=== PATIENT | male | born 1940 | race Two or more races ===

== ENCOUNTER 2017-10-05 17:08 | Inpatient (IN) | payer OTHER, MEDICAID ==
[~2017-10-05] VITALS: Ht 172.7 cm; Wt 73.5 kg
[2017-10-05] MEDS ORDERED: Acetaminophen 650 MG SUPP RECTAL ONE (17:30)
[2017-10-05] MEDS ORDERED: Acetaminophen 500mg (ES) tab ORAL ONE (17:30)
[2017-10-05 17:32] LABS: APPEARANCE,URINE SLIGHTLY CLOUDY; BILIRUBIN, URINE NEGATIVE (NEGATIVE); COLOR,URINE PALE YELLOW; GLUCOSE, URINE (UA) NEGATIVE (NEGATIVE); KETONES,URINE NEGATIVE (NEGATIVE); LEUKOCYTE ESTERASE ,URINE 3+ (NEGATIVE); NITRITE,URINE POSITIVE (NEGATIVE); PH,URINE 6.5 (4.5-8.0); PROTEIN,URINE 2+ (NEGATIVE); UROBILINOGEN,URINE NORMAL MG/DL (0.0-1.0)
[2017-10-05 17:39] LABS: HEMATOCRIT 41.6 % (42.0-52.0); HEMOGLOBIN 14.3 G/DL (14.2-18.0); MEAN CORPUSCULAR VOLUME 100 FL (80-99); PLATELET COUNT 179 K/UL (150-450); RED BLOOD COUNT 4.17 M/UL (4.70-6.10); RED CELL DISTRIBUTION WIDTH 12.6 % (11.6-14.8); WHITE BLOOD COUNT 14.5 K/UL (4.8-10.8)
[2017-10-05 18:12] LABS: ANION GAP 12 mmol/L (5-15); BLOOD UREA NITROGEN 18 mg/dL (7-18); CALCIUM 9.4 MG/DL (8.5-10.1); CARBON DIOXIDE 23 MMOL/L (21-32); CHLORIDE 102 MMOL/L (98-107); CREATININE 1.3 MG/DL (0.55-1.30); POTASSIUM 3.3 MMOL/L (3.5-5.1); SODIUM 137 MMOL/L (136-145)
[2017-10-05 18:16] VITALS: BP 155/85
[2017-10-05] MEDS ORDERED: cefTRIAXone 1 GM in NS 55 ML IVPB ONE (18:30)
[2017-10-05 18:31] LABS: ALANINE AMINOTRANSFERASE 11 U/L (12-78); ALBUMIN 3.6 G/DL (3.4-5.0); ALBUMIN/GLOBULIN RATIO 0.8 (1.0-2.7); ALKALINE PHOSPHATASE 114 U/L (46-116); ASPARTATE AMINO TRANSFERASE 19 U/L (15-37); BILIRUBIN,TOTAL 1.7 MG/DL (0.2-1.0); CKMB < 0.5 NG/ML (0.0-3.6); CREATINE KINASE 83 U/L (26-308)
[2017-10-05 18:37] LABS: BILIRUBIN,DIRECT 0.3 MG/DL (0.0-0.3)
[2017-10-05] MEDS ORDERED: TAMSULOSIN HCL0.4 MG ORAL (19:17)
[2017-10-05] MEDS ORDERED: FLUCONAZOLE100 MG ORAL (19:18)
[2017-10-05] MEDS ORDERED: LOSARTAN POTASS25 MG ORAL (19:19)
[2017-10-05] MEDS ORDERED: PROSCAR5 MG ORAL (19:19)
[2017-10-05 19:32] VITALS: BP 137/71
[2017-10-05] MEDS ORDERED: Morphine Sulfate 2mg/ml Inj IVP PRN (19:45)
[2017-10-05] MEDS ORDERED: Miralax 17gm pkt ORAL PRN (19:45)
[2017-10-05] MEDS ORDERED: Albuterol/Ipratropium 3ml neb HHN PRN (19:45)
--- NOTE | 2017-10-05 19:58 | Emergency Room Report ---
History of Present Illness General Chief Complaint: Altered Level of Consciousness Source: Patient Present Illness HPI 77-year-old male presents ED for evaluation. Patient presenting to home with lethargy and weakness x1 day. Febrile in triage. Denies cough. Denies nausea or vomiting. Denies chest pain or shortness of breath. Denies sick contacts or recent travel. No other aggravating relieving factors. Denies any other associated symptoms Allergies: Coded Allergies: No Known Allergies (Unverified , 10/05/17) Patient History Past Medical History: none Past Surgical History: none Pertinent Family History: none Social History: Denies: smoking, alcohol use, drug use Immunizations: UTD Reviewed Nursing Documentation: PMH: Agreed, PSxH: Agreed Nursing Documentation-PMH Past Medical History: No History, Except For Review of Systems All Other Systems: negative except mentioned in HPI Physical Exam Vital Signs Date Time Temp Pulse Resp B/P (MAP) Pulse Ox O2 Delivery O2 Flow Rate FiO2 10/05/17 16:53 103.8 110 18 153/83 95 Room Air Sp02 EP Interpretation: reviewed, normal General Appearance: no apparent distress, lethargic Head: normocephalic Eyes: bilateral eye normal inspection, bilateral eye PERRL ENT: normal ENT inspection Neck: normal inspection Respiratory: chest non-tender, lungs clear, normal breath sounds, speaking full sentences Cardiovascular #1: regular rate, rhythm, no edema Gastrointestinal: normal bowel sounds, non tender, soft, non-distended, no guarding, no rebound Rectal: deferred Genitourinary: no CVA tenderness Musculoskeletal: normal inspection Neurologic: other - lethargic Psychiatric: other - lethargic Skin: normal inspection Lymphatic: normal inspection Medical Decision Making Diagnostic Impression: Primary Impression: Altered level of consciousness Additional Impression: UTI (urinary tract infection) Qualified Codes: N39.0 - Urinary tract infection, site not specified ER Course Hospital Course 77-year-old male presenting to ED with generalized weakness, fever Differential diagnoses include: Pneumonia, UTI, sepsis, dehydration, MS/ unstable angina Clinical course Patient placed on stretcher. On property assessment monitor with tachycardia, fever. After initial history and physical, I ordered labs, IV fluids, EKG, chest x-ray , blood cultures, UA. given tylenol Labs - electrolytes ok, noted leukocytosis, troponins negative, UA grossly positive for UTI, lactate ok, influenza negative EKG - sinus tachycardia CXR - no acute process Abx given. given IVFs, given tylenol. tachycardia resolved. patient is more awake, alert Case discussed with Dr Daly and they agreed to admit patient to their service for further care and support I feel this is a highly complex case requiring extensive working including EKG/ Rhythm strip, Xray/CT/US, Blood/urine lab work, repeat exams while in ED, and administration of strong opiates/narcotics for pain control, admission to hospital or close patient follow up. Diagnosis - ALOC, UTI Patient admitted to floor in serious condition Labs Test 10/05/17 17:20 White Blood Count 14.5 K/UL (4.8-10.8) Red Blood Count 4.17 M/UL (4.70-6.10) Hemoglobin 14.3 G/DL (14.2-18.0) Hematocrit 41.6 % (42.0-52.0) Mean Corpuscular Volume 100 FL (80-99) Mean Corpuscular Hemoglobin 34.2 PG (27.0-31.0) Mean Corpuscular Hemoglobin Concent 34.3 G/DL (32.0-36.0) Red Cell Distribution Width 12.6 % (11.6-14.8) Platelet Count 179 K/UL (150-450) Mean Platelet Volume 6.8 FL (6.5-10.1) Neutrophils (%) (Auto) % (45.0-75.0) Lymphocytes (%) (Auto) % (20.0-45.0) Monocytes (%) (Auto) % (1.0-10.0) Eosinophils (%) (Auto) % (0.0-3.0) Basophils (%) (Auto) % (0.0-2.0) Differential Total Cells Counted 100 Neutrophils % (Manual) 88 % (45-75) Lymphocytes % (Manual) 7 % (20-45) Monocytes % (Manual) 3 % (1-10) Eosinophils % (Manual) 0 % (0-3) Basophils % (Manual) 0 % (0-2) Band Neutrophils 2 % (0-8) Platelet Estimate Adequate Platelet Morphology Normal Red Blood Cell Morphology Normal Urine Color Pale yellow Urine Appearance Slightly cloudy Urine pH 6.5 (4.5-8.0) Urine Specific [place] 1.010 (1.005-1.035) Urine Protein 2+ (NEGATIVE) Urine Glucose (UA) Negative (NEGATIVE) Urine Ketones Negative (NEGATIVE) Urine Occult Blood 4+ (NEGATIVE) Urine Nitrite Positive (NEGATIVE) Urine Bilirubin Negative (NEGATIVE) Urine Urobilinogen Normal MG/DL (0.0-1.0) Urine Leukocyte Esterase 3+ (NEGATIVE) Urine RBC 10-15 /HPF (0 - 0) Urine WBC 5-10 /HPF (0 - 0) Urine Squamous Epithelial Cells None /LPF (NONE/OCC) Urine Amorphous Sediment Few /LPF (NONE) Urine Bacteria Many /HPF (NONE) Sodium Level 137 MMOL/L (136-145) Potassium Level 3.3 MMOL/L (3.5-5.1) Chloride Level 102 MMOL/L (98-107) Carbon Dioxide Level 23 MMOL/L (21-32) Anion Gap 12 mmol/L (5-15) Blood Urea Nitrogen 18 mg/dL (7-18) Creatinine 1.3 MG/DL (0.55-1.30) Estimat Glomerular Filtration Rate mL/min (>60) Glucose Level 145 MG/DL (74-106) Lactic Acid Level 1.20 mmol/L (0.66-2.22) Calcium Level 9.4 MG/DL (8.5-10.1) Total Bilirubin 1.7 MG/DL (0.2-1.0) Direct Bilirubin 0.3 MG/DL (0.0-0.3) Aspartate Amino Transf (AST/SGOT) 19 U/L (15-37) Alanine Aminotransferase (ALT/SGPT) 11 U/L (12-78) Alkaline Phosphatase 114 U/L (46-116) Total Creatine Kinase 83 U/L (26-308) Creatine Kinase MB < 0.5 NG/ML (0.0-3.6) Creatine Kinase MB Relative Index 0.6 Troponin I 0.008 ng/mL (0.000-0.056) Pro-B-Type Natriuretic Peptide 400 pg/mL (0-125) Total Protein 8.0 G/DL (6.4-8.2) Albumin 3.6 G/DL (3.4-5.0) Globulin 4.4 g/dL Albumin/Globulin Ratio 0.8 (1.0-2.7) EKG Diagnostic Results Rate: tachycardiac Rhythm: NSR ST Segments: no acute changes ASA given to the pt in ED: No Rhythm Strip Diag. Results EP Interpretation: yes Rhythm: NSR, no PVC's, no ectopy Chest X-Ray Diagnostic Results Chest X-Ray Diagnostic Results : Chest X-Ray Ordered: Yes # of Views/Limited/Complete: 1 View Indication: Other - ams EP Interpretation: Yes Interpretation: no consolidation, no effusion, no pneumothorax, no acute cardiopulmonary disease Impression: No acute disease Electronically Signed by: Electronically signed by Ryley Tracy MD Last Vital Signs Date Time Temp Pulse Resp B/P (MAP) Pulse Ox O2 Delivery O2 Flow Rate FiO2 10/05/17 19:32 100.1 92 20 137/71 97 Room Air Status: improved Disposition: ADMITTED INPATIENT Condition: Serious Referrals: [facility],REFERRING (PCP) RYLEY TRACY M.D. Oct 05, 2017 19:58
[2017-10-05] MEDS ORDERED: Vancomycin 1.5 GM/D5W 250ML IVPB ONE (20:00)
[2017-10-05 21:20] VITALS: BP 132/72
[2017-10-06] VITALS: BP 147/91
[2017-10-06] MEDS ORDERED: Vancomycin 1 GM in D5W 275 ML IV SCH (00:30)
[2017-10-06] MEDS ORDERED: Cefepime 2gm ONE (00:33)
[2017-10-06] MEDS: Tamsulosin 0.4mg cap ORAL SCH ×2 (00:53→21:01)
[2017-10-06] MEDS: Cefepime HCl 2 GM in D5W 110 ML IV SCH ×2 (00:54→23:06)
[2017-10-06] MEDS: Heparin 5000 units/ml inj SUBQ SCH ×3 (00:56→21:03)
[2017-10-06 04:00] VITALS: BP 125/79
[2017-10-06 07:23] LABS: HEMATOCRIT 40.8 % (42.0-52.0); HEMOGLOBIN 13.9 G/DL (14.2-18.0); MEAN CORPUSCULAR VOLUME 102 FL (80-99); PLATELET COUNT 173 K/UL (150-450); RED BLOOD COUNT 4.02 M/UL (4.70-6.10); RED CELL DISTRIBUTION WIDTH 13.1 % (11.6-14.8); WHITE BLOOD COUNT 17.8 K/UL (4.8-10.8)
[2017-10-06 07:37] LABS: ALANINE AMINOTRANSFERASE 13 U/L (12-78); ALBUMIN 3.1 G/DL (3.4-5.0); ALBUMIN/GLOBULIN RATIO 0.8 (1.0-2.7); ALKALINE PHOSPHATASE 100 U/L (46-116); ANION GAP 7 mmol/L (5-15); ASPARTATE AMINO TRANSFERASE 17 U/L (15-37); BILIRUBIN,TOTAL 2.1 MG/DL (0.2-1.0); BLOOD UREA NITROGEN 20 mg/dL (7-18); CALCIUM 9.1 MG/DL (8.5-10.1); CARBON DIOXIDE 28 MMOL/L (21-32); CHLORIDE 101 MMOL/L (98-107); CREATININE 1.5 MG/DL (0.55-1.30); POTASSIUM 3.5 MMOL/L (3.5-5.1); SODIUM 136 MMOL/L (136-145)
[2017-10-06 07:38] LABS: BILIRUBIN,DIRECT 0.3 MG/DL (0.0-0.3)
--- NOTE | 2017-10-06 09:40 | Diagnostic Imaging Report ---
Indication: Weakness Technique: XRAY Chest 1v Comparison: None Findings: Our is borderline enlarged. Thoracic aorta is slightly tortuous. There is very mild pulmonary vascular congestion. There is no focal airspace consolidation. No pleural effusion or pneumothorax. There are degenerative changes of the spine. Chronic right-sided rib fractures. No acute osseous abnormality is seen. Impression: Borderline cardiomegaly and suggestion of mild pulmonary vascular congestion. No focal consolidation. Study obtained via the emergency department however patient admitted to the hospital at time of dictation of the final report.
--- NOTE | 2017-10-06 11:50 | History and Physical ---
History of Present Illness General Date patient seen: Oct 06, 2017 Reason for Hospitalization: Altered Level of Consciousness Present Illness HPI 77-year-old male with hx of BPH, HTN presented to ED for evaluation of lethargy and weakness x1 day. Pt was febrile in ER . Denies cough. Denies nausea or vomiting. Denies chest pain or shortness of breath. No other aggravating relieving factors. Denies any other associated symptoms. Pt is admitted for w/u and treatment of sepsi. Allergies: Coded Allergies: No Known Allergies (Unverified , 10/05/17) Medication History Scheduled Finasteride* (Proscar*), 5 MG ORAL DAILY, (Reported) Fluconazole (Fluconazole), 100 MG ORAL DAILY, (Reported) Losartan Potassium* (Losartan Potassium*), 25 MG ORAL DAILY, (Reported) Tamsulosin Hcl (Tamsulosin Hcl*), 0.4 MG ORAL BEDTIME, (Reported) Patient History Healthcare decision maker Resuscitation status Full Code Advanced Directive on File Past Medical/Surgical History Past Medical/Surgical History: (1) BPH (benign prostatic hyperplasia) Review of Systems Constitutional: Reports: malaise, weakness Physical Exam General Appearance: WD/WN Lines, tubes and drains: peripheral HEENT: normocephalic, atraumatic Neck: non-tender, normal alignment Respiratory/Chest: chest wall non-tender, lungs clear Breasts: no masses Cardiovascular/Chest: normal peripheral pulses Abdomen: normal bowel sounds Genitourinary/Rectal: normal genital exam Last 24 Hour Vital Signs Date Time Temp Pulse Resp B/P (MAP) Pulse Ox O2 Delivery O2 Flow Rate FiO2 10/06/17 04:00 99.5 99 18 125/79 95 Room Air 10/06/17 00:00 109 21 147/91 99 Room Air 10/05/17 21:25 100.1 93 19 132/72 98 Room Air 10/05/17 21:20 100.1 93 19 132/72 98 Room Air 10/05/17 19:32 100.1 92 20 137/71 97 Room Air 10/05/17 18:21 100.1 10/05/17 18:18 98.7 10/05/17 18:16 98.7 134 19 155/85 Room Air 10/05/17 17:27 102.8 10/05/17 16:53 103.8 110 18 153/83 95 Room Air Intake and Output 1/27/18 1/28/18 19:00 07:00 Intake Total 0 ml Output Total 200 ml 1650 ml Balance -200 ml -1650 ml Intake Oral 0 ml Output Urine Total 200 ml 1650 ml Laboratory Tests Test 10/05/17 17:20 10/06/17 06:10 White Blood Count 14.5 K/UL (4.8-10.8) H 17.8 K/UL (4.8-10.8) H Red Blood Count 4.17 M/UL (4.70-6.10) L 4.02 M/UL (4.70-6.10) L Hemoglobin 14.3 G/DL (14.2-18.0) 13.9 G/DL (14.2-18.0) L Hematocrit 41.6 % (42.0-52.0) L 40.8 % (42.0-52.0) L Mean Corpuscular Volume 100 FL (80-99) H 102 FL (80-99) H Mean Corpuscular Hemoglobin 34.2 PG (27.0-31.0) H 34.5 PG (27.0-31.0) H Mean Corpuscular Hemoglobin Concent 34.3 G/DL (32.0-36.0) 34.0 G/DL (32.0-36.0) Red Cell Distribution Width 12.6 % (11.6-14.8) 13.1 % (11.6-14.8) Platelet Count 179 K/UL (150-450) 173 K/UL (150-450) Mean Platelet Volume 6.8 FL (6.5-10.1) 5.2 FL (6.5-10.1) L Neutrophils (%) (Auto) % (45.0-75.0) % (45.0-75.0) Lymphocytes (%) (Auto) % (20.0-45.0) % (20.0-45.0) Monocytes (%) (Auto) % (1.0-10.0) % (1.0-10.0) Eosinophils (%) (Auto) % (0.0-3.0) % (0.0-3.0) Basophils (%) (Auto) % (0.0-2.0) % (0.0-2.0) Differential Total Cells Counted 100 100 Neutrophils % (Manual) 88 % (45-75) H 93 % (45-75) H Lymphocytes % (Manual) 7 % (20-45) L 3 % (20-45) L Monocytes % (Manual) 3 % (1-10) 4 % (1-10) Eosinophils % (Manual) 0 % (0-3) 0 % (0-3) Basophils % (Manual) 0 % (0-2) 0 % (0-2) Band Neutrophils 2 % (0-8) 0 % (0-8) Platelet Estimate Adequate Adequate Platelet Morphology Normal Normal Red Blood Cell Morphology Normal Urine Color Pale yellow Urine Appearance Slightly cloudy Urine pH 6.5 (4.5-8.0) Urine Specific [place] 1.010 (1.005-1.035) Urine Protein 2+ (NEGATIVE) H Urine Glucose (UA) Negative (NEGATIVE) Urine Ketones Negative (NEGATIVE) Urine Occult Blood 4+ (NEGATIVE) H Urine Nitrite Positive (NEGATIVE) H Urine Bilirubin Negative (NEGATIVE) Urine Urobilinogen Normal MG/DL (0.0-1.0) Urine Leukocyte Esterase 3+ (NEGATIVE) H Urine RBC 10-15 /HPF (0 - 0) H Urine WBC 5-10 /HPF (0 - 0) H Urine Squamous Epithelial Cells None /LPF (NONE/OCC) Urine Amorphous Sediment Few /LPF (NONE) H Urine Bacteria Many /HPF (NONE) H Sodium Level 137 MMOL/L (136-145) 136 MMOL/L (136-145) Potassium Level 3.3 MMOL/L (3.5-5.1) L 3.5 MMOL/L (3.5-5.1) Chloride Level 102 MMOL/L (98-107) 101 MMOL/L (98-107) Carbon Dioxide Level 23 MMOL/L (21-32) 28 MMOL/L (21-32) Anion Gap 12 mmol/L (5-15) 7 mmol/L (5-15) Blood Urea Nitrogen 18 mg/dL (7-18) 20 mg/dL (7-18) H Creatinine 1.3 MG/DL (0.55-1.30) 1.5 MG/DL (0.55-1.30) H Estimat Glomerular Filtration Rate mL/min (>60) mL/min (>60) Glucose Level 145 MG/DL (74-106) H 131 MG/DL (74-106) H Lactic Acid Level 1.20 mmol/L (0.66-2.22) Calcium Level 9.4 MG/DL (8.5-10.1) 9.1 MG/DL (8.5-10.1) Total Bilirubin 1.7 MG/DL (0.2-1.0) H 2.1 MG/DL (0.2-1.0) H Direct Bilirubin 0.3 MG/DL (0.0-0.3) 0.3 MG/DL (0.0-0.3) Aspartate Amino Transf (AST/SGOT) 19 U/L (15-37) 17 U/L (15-37) Alanine Aminotransferase (ALT/SGPT) 11 U/L (12-78) L 13 U/L (12-78) Alkaline Phosphatase 114 U/L (46-116) 100 U/L (46-116) Total Creatine Kinase 83 U/L (26-308) Creatine Kinase MB < 0.5 NG/ML (0.0-3.6) Creatine Kinase MB Relative Index 0.6 Troponin I 0.008 ng/mL (0.000-0.056) Pro-B-Type Natriuretic Peptide 400 pg/mL (0-125) H Total Protein 8.0 G/DL (6.4-8.2) 7.2 G/DL (6.4-8.2) Albumin 3.6 G/DL (3.4-5.0) 3.1 G/DL (3.4-5.0) L Globulin 4.4 g/dL 4.1 g/dL Albumin/Globulin Ratio 0.8 (1.0-2.7) L 0.8 (1.0-2.7) L Macrocytosis 1+ Microbiology Date/Time Source Procedure Growth Status 10/05/17 17:39 Nasal Nares Influenza Types A,B Antigen (DAISY) - Final Complete 10/05/17 17:20 Urine,Clean Catch Urine Culture - Preliminary Gram Negative Bacillus 1 Resulted Height (Feet): 5 Height (Inches): 8.00 Weight (Pounds): 162 Medications Current Medications Medications (Trade) Dose Ordered Sig/Mary Beth Route PRN Reason Start Time Stop Time Status Last Admin Dose Admin Acetaminophen (Tylenol) 650 mg Q4H PRN ORAL T>100.5 10/05/17 19:45 11/04/17 19:44 Albuterol/ Ipratropium (Albuterol/ Ipratropium) 3 ml Q4H PRN HHN Shortness of Breath 10/05/17 19:45 10/10/17 19:44 Cefepime HCl 2 gm/ Dextrose 110 ml @ 220 mls/hr Q24H IV 10/05/17 22:00 10/12/17 21:59 10/06/17 00:54 Finasteride (Proscar) 5 mg DAILY ORAL 10/06/17 09:00 11/05/17 08:59 10/06/17 09:49 Heparin Sodium (Porcine) (Heparin 5000 units/ml) 5,000 units EVERY 12 HOURS SUBQ 10/05/17 21:00 11/04/17 20:59 10/06/17 09:51 Morphine Sulfate (Morphine Sulfate) 2 mg Q4H PRN IVP Moderate Pain (Pain Scale 4-6) 10/05/17 19:45 10/12/17 19:44 Ondansetron HCl (Zofran) 4 mg Q6H PRN IVP Nausea & Vomiting 10/05/17 19:45 11/04/17 19:44 Phenazopyridine HCl (Pyridium) 100 mg DAILYPRN PRN ORAL dysuria 10/05/17 19:45 11/04/17 19:44 Polyethylene Glycol (Miralax) 17 gm DAILYPRN PRN ORAL Constipation 10/05/17 19:45 11/04/17 19:44 Tamsulosin HCl (Flomax) 0.4 mg BEDTIME ORAL 10/05/17 21:00 11/04/17 20:59 10/06/17 00:53 Temazepam (Restoril) 15 mg HSPRN PRN ORAL Insomnia 10/05/17 19:45 10/12/17 19:44 Vancomycin HCl (Vanco rx to dose) 1 ea DAILY PRN MISC . 10/05/17 20:00 11/04/17 19:59 Vancomycin HCl/ Dextrose 250 ml @ 166.667 mls/hr Q24H IVPB 10/06/17 20:00 10/11/17 19:59 Assessment/Plan Problem List: (1) Sepsis ICD Codes: A41.9 - Sepsis, unspecified organism SNOMED: 73163404 (2) UTI (urinary tract infection) ICD Codes: N39.0 - Urinary tract infection, site not specified SNOMED: 28404355 Qualifiers: Qualified Codes: N39.0 - Urinary tract infection, site not specified (3) Altered level of consciousness ICD Codes: R40.4 - Transient alteration of awareness SNOMED: 0962833 (4) BPH (benign prostatic hyperplasia) ICD Codes: N40.0 - Benign prostatic hyperplasia without lower urinary tract symptoms SNOMED: 727074777 Assessment/Plan iv fuids iv abx check cultures renal w/u continue home meds monitor bp JOHN PAUL SEPINOSA Oct 06, 2017 11:50
[2017-10-06 12:00] VITALS: BP 147/80
[2017-10-06 16:00] VITALS: BP 148/71
[2017-10-06] MEDS ORDERED: Tubing IV Secondary IV ONE (16:25)
[2017-10-06] MEDS: Vancomycin 1250mg/D5W 250ml IVPB SCH (19:55)
[2017-10-06 20:43] VITALS: BP 122/73
[2017-10-07 00:08] VITALS: BP 116/72
[2017-10-07 04:22] VITALS: BP 121/72
[2017-10-07 08:00] VITALS: BP 129/76
[2017-10-07] MEDS: Heparin 5000 units/ml inj SUBQ SCH ×2 (09:38→20:42)
[2017-10-07 12:00] VITALS: BP 110/69
[2017-10-07] MEDS ORDERED: Ertapenem 1gm in NS 55ml IVPB SCH (15:00)
[2017-10-07 16:00] VITALS: BP 134/81
--- NOTE | 2017-10-07 17:11 | Pulmonology Progress Note ---
Assessment/Plan Problems: (1) Sepsis (2) UTI (urinary tract infection) (3) Altered level of consciousness (4) BPH (benign prostatic hyperplasia) Assessment/Plan continue abx iv fluids check electroltyes renal w/u dvt prophylaxis. Subjective ROS Limited/Unobtainable: No Constitutional: Reports: no symptoms HEENT: Repors: no symptoms Respiratory: Reports: no symptoms Allergies: Coded Allergies: No Known Allergies (Unverified , 10/05/17) Objective Last 24 Hour Vital Signs Date Time Temp Pulse Resp B/P (MAP) Pulse Ox O2 Delivery O2 Flow Rate FiO2 10/07/17 16:00 101.7 100 20 134/81 96 10/07/17 12:00 98.2 90 18 110/69 97 10/07/17 08:00 99.7 107 18 129/76 96 10/07/17 04:22 98.9 91 19 121/72 96 10/07/17 00:08 98.9 90 18 116/72 96 10/06/17 20:43 98.9 91 18 122/73 96 Intake and Output 10/06/17 10/07/17 19:00 07:00 Intake Total 490.000 ml Balance 490.000 ml Intake Oral 240 ml IV Total 250.000 ml # Voids 2 # Bowel Movements 2 Objective General Appearance: WN HEENT: normocephalic, atraumatic Respiratory/Chest: chest wall non-tender, lungs clear Cardiovascular: normal peripheral pulses, normal rate Abdomen: normal bowel sounds, no organomegaly Extremities: no cyanosis Skin: no rash 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/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, alert Lymphatic: no neck adenopathy General Appearance: WD/WN Microbiology Date/Time Source Procedure Growth Status 10/05/17 17:22 Blood Blood Culture - Preliminary Gram Negative Bacillus 1 Resulted 10/05/17 17:20 Blood Blood Culture - Preliminary NO GROWTH AFTER 24 HOURS Resulted 10/05/17 17:39 Nasal Nares Influenza Types A,B Antigen (DAISY) - Final Complete 10/06/17 14:10 Stool Clostridium difficile Toxin Assay - Final Complete 10/05/17 17:20 Urine,Clean Catch Urine Culture - Preliminary Escherichia Coli - Esbl Gram Negative Bacillus 1 Resulted Current Medications Medications (Trade) Dose Ordered Sig/Mary Beth Route PRN Reason Start Time Stop Time Status Last Admin Dose Admin Acetaminophen (Tylenol) 650 mg Q4H PRN ORAL T>100.5 10/05/17 19:45 11/04/17 19:44 10/07/17 16:09 Albuterol/ Ipratropium (Albuterol/ Ipratropium) 3 ml Q4H PRN HHN Shortness of Breath 10/05/17 19:45 10/10/17 19:44 Ertapenem 1 gm/ Sodium Chloride 55 ml @ 110 mls/hr Q24H IVPB 10/07/17 15:00 10/12/17 14:59 10/07/17 16:05 Finasteride (Proscar) 5 mg DAILY ORAL 10/06/17 09:00 11/05/17 08:59 10/07/17 09:37 Heparin Sodium (Porcine) (Heparin 5000 units/ml) 5,000 units EVERY 12 HOURS SUBQ 10/05/17 21:00 11/04/17 20:59 10/07/17 09:38 Morphine Sulfate (Morphine Sulfate) 2 mg Q4H PRN IVP Moderate Pain (Pain Scale 4-6) 10/05/17 19:45 10/12/17 19:44 Ondansetron HCl (Zofran) 4 mg Q6H PRN IVP Nausea & Vomiting 10/05/17 19:45 11/04/17 19:44 Phenazopyridine HCl (Pyridium) 100 mg DAILYPRN PRN ORAL dysuria 10/05/17 19:45 11/04/17 19:44 Polyethylene Glycol (Miralax) 17 gm DAILYPRN PRN ORAL Constipation 10/05/17 19:45 11/04/17 19:44 Tamsulosin HCl (Flomax) 0.4 mg BEDTIME ORAL 10/05/17 21:00 11/04/17 20:59 10/06/17 21:01 Temazepam (Restoril) 15 mg HSPRN PRN ORAL Insomnia 10/05/17 19:45 10/12/17 19:44 Vancomycin HCl (Vanco rx to dose) 1 ea DAILY PRN MISC . 10/05/17 20:00 11/04/17 19:59 Vancomycin HCl/ Dextrose 250 ml @ 166.667 mls/hr Q24H IVPB 10/06/17 20:00 10/11/17 19:59 10/06/17 19:55 JOHN PAUL ESPINOSA Oct 07, 2017 17:11
[2017-10-07 19:26] LABS: CREATINE KINASE 82 U/L (26-308)
[2017-10-07 20:00] VITALS: BP 133/78
[2017-10-07 20:05] LABS: APPEARANCE,URINE SLIGHTLY CLOUDY; BILIRUBIN, URINE NEGATIVE (NEGATIVE); COLOR,URINE PALE YELLOW; GLUCOSE, URINE (UA) NEGATIVE (NEGATIVE); KETONES,URINE NEGATIVE (NEGATIVE); LEUKOCYTE ESTERASE ,URINE 1+ (NEGATIVE); NITRITE,URINE NEGATIVE (NEGATIVE); PH,URINE 5 (4.5-8.0); PROTEIN,URINE 3+ (NEGATIVE); UROBILINOGEN,URINE NORMAL MG/DL (0.0-1.0)
[2017-10-07] MEDS: Tamsulosin 0.4mg cap ORAL SCH (20:41)
[2017-10-07] MEDS: Vancomycin 1250mg/D5W 250ml IVPB SCH (20:41)
--- NOTE | 2017-10-07 21:37 | Consultation ---
History of Present Illness General Date patient seen: Oct 07, 2017 Time patient seen: 21:19 Chief Complaint: Altered Level of Consciousness Present Illness HPI 77 y/o M with hx of BPH, HTN presents to ED on 10/05 with lethargy and weakness for 1 day. In ED febrile and has been intermittent febrile up to 103;in the last 24 hrs Tm 101.1. Denied cough, n/v/d, CP, SOB, sick contacnts or recent travel upon admission. bacteremic with ESBL E.coli and 2nd GNR Allergies: Coded Allergies: No Known Allergies (Unverified , 10/05/17) Medication History Scheduled Finasteride* (Proscar*), 5 MG ORAL DAILY, (Reported) Fluconazole (Fluconazole), 100 MG ORAL DAILY, (Reported) Losartan Potassium* (Losartan Potassium*), 25 MG ORAL DAILY, (Reported) Tamsulosin Hcl (Tamsulosin Hcl*), 0.4 MG ORAL BEDTIME, (Reported) Patient History Healthcare decision maker Resuscitation status Full Code Advanced Directive on File Patient History Narrative PMhx: as above SHx: Denies: smoking, alcohol use, drug use Fhx: non contributory Review of Systems All Other Systems: negative except mentioned in HPI Physical Exam Physical Exam Narrative General Appearance: no apparent distress, lethargic Head: normocephalic Eyes: bilateral eye normal inspection, bilateral eye PERRL ENT: normal ENT inspection Neck: normal inspection Respiratory: chest non-tender, lungs clear, normal breath sounds, speaking full sentences Cardiovascular #1: regular rate, rhythm, no edema Gastrointestinal: normal bowel sounds, non tender, soft, non-distended, no guarding, no rebound Rectal: deferred Genitourinary: no CVA tenderness Musculoskeletal: normal inspection Neurologic: other - lethargic Psychiatric: other - lethargic Skin: normal inspection Lymphatic: normal inspection Last 24 Hour Vital Signs Date Time Temp Pulse Resp B/P (MAP) Pulse Ox O2 Delivery O2 Flow Rate FiO2 10/07/17 17:04 99.5 10/07/17 16:00 101.7 100 20 134/81 96 10/07/17 12:00 98.2 90 18 110/69 97 10/07/17 08:00 99.7 107 18 129/76 96 10/07/17 04:22 98.9 91 19 121/72 96 10/07/17 00:08 98.9 90 18 116/72 96 Intake and Output 10/06/17 10/07/17 19:00 07:00 Intake Total 490.000 ml Balance 490.000 ml Intake Oral 240 ml IV Total 250.000 ml # Voids 2 # Bowel Movements 2 Laboratory Tests Test 10/07/17 18:30 10/07/17 18:50 Urine Color Pale yellow Urine Appearance Slightly cloudy Urine pH 5 (4.5-8.0) Urine Specific [place] 1.015 (1.005-1.035) Urine Protein 3+ (NEGATIVE) H Urine Glucose (UA) Negative (NEGATIVE) Urine Ketones Negative (NEGATIVE) Urine Occult Blood 5+ (NEGATIVE) H Urine Nitrite Negative (NEGATIVE) Urine Bilirubin Negative (NEGATIVE) Urine Urobilinogen Normal MG/DL (0.0-1.0) Urine Leukocyte Esterase 1+ (NEGATIVE) H Urine RBC 30-40 /HPF (0 - 0) H Urine WBC 5-10 /HPF (0 - 0) H Urine Squamous Epithelial Cells None /LPF (NONE/OCC) Urine Bacteria Few /HPF (NONE) Urine Eosinophils Pending Urine Random Sodium 23 MEQ/L (20-110) Urine Potassium Timed 30 mmol/L (12-62) Uric Acid 5.5 MG/DL (2.6-7.2) Total Creatine Kinase 82 U/L (26-308) Vancomycin Level Trough 6.4 ug/mL (5.0-12.0) Height (Feet): 5 Height (Inches): 8.00 Weight (Pounds): 162 Medications Current Medications Medications (Trade) Dose Ordered Sig/Mary Beth Route PRN Reason Start Time Stop Time Status Last Admin Dose Admin Acetaminophen (Tylenol) 650 mg Q4H PRN ORAL T>100.5 10/05/17 19:45 11/04/17 19:44 10/07/17 16:09 Albuterol/ Ipratropium (Albuterol/ Ipratropium) 3 ml Q4H PRN HHN Shortness of Breath 10/05/17 19:45 10/10/17 19:44 Ertapenem 1 gm/ Sodium Chloride 55 ml @ 110 mls/hr Q24H IVPB 10/07/17 15:00 10/12/17 14:59 10/07/17 16:05 Finasteride (Proscar) 5 mg DAILY ORAL 10/06/17 09:00 11/05/17 08:59 10/07/17 09:37 Heparin Sodium (Porcine) (Heparin 5000 units/ml) 5,000 units EVERY 12 HOURS SUBQ 10/05/17 21:00 11/04/17 20:59 10/07/17 20:42 Morphine Sulfate (Morphine Sulfate) 2 mg Q4H PRN IVP Moderate Pain (Pain Scale 4-6) 10/05/17 19:45 10/12/17 19:44 Ondansetron HCl (Zofran) 4 mg Q6H PRN IVP Nausea & Vomiting 10/05/17 19:45 11/04/17 19:44 Phenazopyridine HCl (Pyridium) 100 mg DAILYPRN PRN ORAL dysuria 10/05/17 19:45 11/04/17 19:44 Polyethylene Glycol (Miralax) 17 gm DAILYPRN PRN ORAL Constipation 10/05/17 19:45 11/04/17 19:44 Tamsulosin HCl (Flomax) 0.4 mg BEDTIME ORAL 10/05/17 21:00 11/04/17 20:59 10/07/17 20:41 Temazepam (Restoril) 15 mg HSPRN PRN ORAL Insomnia 10/05/17 19:45 10/12/17 19:44 Vancomycin HCl (Vanco rx to dose) 1 ea DAILY PRN MISC . 10/05/17 20:00 11/04/17 19:59 Vancomycin HCl/ Dextrose 250 ml @ 166.667 mls/hr Q24H IVPB 10/06/17 20:00 10/11/17 19:59 10/07/17 20:41 Assessment/Plan Assessment/Plan Abx: Cefepime 10/05-10/07 Ertapenem 10/07- Vancomycin 10/05- Ceftriaxone x1 10/05 Assessment: Sepsis 2ry to Gram negative bactermia (suspect urinary source) -Bcx ESBL e,coli, 2nd GNR UTI -u/a wbc 15-20,n it +; ucx GNRs Fever/leukocytosis- 2ry to above; leukocytosis worse -CXR: Borderline cardiomegaly and suggestion of mild pulmonary vascular congestion. No focal consolidation. -influenza neg BPH HTN Plan: -Switch abx to Meropenem pending ID 2nd GNR -d/c IV Vanocmyin #3 -repeat 2 sets of Bcx -f/u cx -Monitor CBC/BMP, temperatures -aspiration precautions Thank you for this consultation. Will continue to follow along with you. Discussed with Ana Garcia M.D. Oct 07, 2017 21:37
[2017-10-07] MEDS ORDERED: NS IVPB SCH (21:45)
[2017-10-07] MEDS ORDERED: MEROPENEM IVPB SCH (21:45)
[2017-10-07] MEDS ORDERED: Meropenem 2 GM in NS 110 ML IVPB SCH (23:00)
[2017-10-07] MEDS ORDERED: Meropenem 1gm vial ONE (23:29)
[2017-10-08] VITALS: BP 131/80
[2017-10-08 04:00] VITALS: BP 139/81
[2017-10-08 07:25] LABS: HEMATOCRIT 37.1 % (42.0-52.0); HEMOGLOBIN 12.8 G/DL (14.2-18.0); MEAN CORPUSCULAR VOLUME 101 FL (80-99); PLATELET COUNT 147 K/UL (150-450); RED BLOOD COUNT 3.68 M/UL (4.70-6.10); WHITE BLOOD COUNT 8.4 K/UL (4.8-10.8)
[2017-10-08 08:20] LABS: ALANINE AMINOTRANSFERASE 20 U/L (12-78); ALBUMIN 2.5 G/DL (3.4-5.0); ALBUMIN/GLOBULIN RATIO 0.6 (1.0-2.7); ALKALINE PHOSPHATASE 82 U/L (46-116); ANION GAP 10 mmol/L (5-15); ASPARTATE AMINO TRANSFERASE 21 U/L (15-37); BLOOD UREA NITROGEN 27 mg/dL (7-18); CALCIUM 9.2 MG/DL (8.5-10.1); CARBON DIOXIDE 25 MMOL/L (21-32); CHLORIDE 102 MMOL/L (98-107); CREATININE 1.4 MG/DL (0.55-1.30); PHOSPHORUS 2.4 MG/DL (2.5-4.9); POTASSIUM 2.9 MMOL/L (3.5-5.1); SODIUM 137 MMOL/L (136-145)
[2017-10-08 08:22] VITALS: BP 134/63
[2017-10-08 08:42] LABS: BILIRUBIN,TOTAL 0.7 MG/DL (0.2-1.0)
[2017-10-08] MEDS: Heparin 5000 units/ml inj SUBQ SCH ×2 (10:14→21:00)
--- NOTE | 2017-10-08 11:41 | Infectious Diseases Prog Note ---
Assessment/Plan Assessment/Plan Assessment: Sepsis 2ry to ESBL Bacteremia and UTI -Bcx 10/05 09/12 ESBL e,coli; Bcx 10/06 Bcx p UTI- r/o anatomic obstruction -u/a wbc 15-20,n it +; ucx >100 ESBL E,coli, >100 Morganella morgani (S Ceftriaxone, levo, ertapenem) Fever/leukocytosis- 2ry to above; fever improving, leukocytosis resolved -CXR: Borderline cardiomegaly and suggestion of mild pulmonary vascular congestion. No focal consolidation. -influenza neg BPH HTN Plan: -Switch Meropenem #2 back to ertapenem for ESBL E.coli bacteremia and ESBL E, coli and morganella UTI; will treat for 14 days -10/07 SP IV Vancomyin #3, Ertapenem x1, CEfepime #3 -10/05 Ceftriaxone x1 -f/u Renal US -f/u repeat 2 sets of Bcx -f/u cx -Monitor CBC/BMP, temperatures -aspiration precautions Thank you for this consultation. Will continue to follow along with you. Discussed with RN Subjective Allergies: Coded Allergies: No Known Allergies (Unverified , 10/05/17) Subjective afebrile >12hrs leukocytosis resolved repeat Bcx p Objective Vital Signs Last 24 Hour Vital Signs Date Time Temp Pulse Resp B/P (MAP) Pulse Ox O2 Delivery O2 Flow Rate FiO2 10/08/17 09:48 77 20 Room Air 21 10/08/17 08:22 98.0 105 20 134/63 97 10/08/17 04:00 99.1 89 18 139/81 95 10/08/17 04:00 Room Air 10/08/17 00:00 Room Air 10/08/17 00:00 97.7 83 18 131/80 96 10/07/17 20:00 99.9 81 20 133/78 97 10/07/17 20:00 Room Air 10/07/17 17:04 99.5 10/07/17 16:00 101.7 100 20 134/81 96 10/07/17 12:00 98.2 90 18 110/69 97 Height (Feet): 5 Height (Inches): 8.00 Weight (Pounds): 162 Objective General Appearance: no apparent distress, lethargic Head: normocephalic Eyes: bilateral eye normal inspection, bilateral eye PERRL ENT: normal ENT inspection Neck: normal inspection Respiratory: chest non-tender, lungs clear, normal breath sounds, speaking full sentences Cardiovascular regular rate, rhythm, no edema Gastrointestinal: normal bowel sounds, non tender, soft, non-distended, no guarding, no rebound Rectal: deferred Genitourinary: no CVA tenderness Musculoskeletal: normal inspection Skin: normal inspection Microbiology Date/Time Source Procedure Growth Status 10/05/17 17:22 Blood Blood Culture - Final Escherichia Coli - Esbl Complete 10/05/17 17:20 Blood Blood Culture - Preliminary NO GROWTH AFTER 48 HOURS Resulted 10/05/17 17:39 Nasal Nares Influenza Types A,B Antigen (DAISY) - Final Complete 10/06/17 14:10 Stool Clostridium difficile Toxin Assay - Final Complete 10/05/17 17:20 Urine,Clean Catch Urine Culture - Final Escherichia Coli - Esbl Morganella Morg Spp Morganii Complete Laboratory Tests Test 10/07/17 18:30 10/07/17 18:50 10/08/17 05:20 Urine Color Pale yellow Urine Appearance Slightly cloudy Urine pH 5 (4.5-8.0) Urine Specific [place] 1.015 (1.005-1.035) Urine Protein 3+ (NEGATIVE) H Urine Glucose (UA) Negative (NEGATIVE) Urine Ketones Negative (NEGATIVE) Urine Occult Blood 5+ (NEGATIVE) H Urine Nitrite Negative (NEGATIVE) Urine Bilirubin Negative (NEGATIVE) Urine Urobilinogen Normal MG/DL (0.0-1.0) Urine Leukocyte Esterase 1+ (NEGATIVE) H Urine RBC 30-40 /HPF (0 - 0) H Urine WBC 5-10 /HPF (0 - 0) H Urine Squamous Epithelial Cells None /LPF (NONE/OCC) Urine Bacteria Few /HPF (NONE) Urine Eosinophils None seen Urine Random Sodium 23 MEQ/L (20-110) Urine Potassium Timed 30 mmol/L (12-62) Uric Acid 5.5 MG/DL (2.6-7.2) Total Creatine Kinase 82 U/L (26-308) Vancomycin Level Trough 6.4 ug/mL (5.0-12.0) White Blood Count 8.4 K/UL (4.8-10.8) Red Blood Count 3.68 M/UL (4.70-6.10) L Hemoglobin 12.8 G/DL (14.2-18.0) L Hematocrit 37.1 % (42.0-52.0) L Mean Corpuscular Volume 101 FL (80-99) H Mean Corpuscular Hemoglobin 34.7 PG (27.0-31.0) H Mean Corpuscular Hemoglobin Concent 34.4 G/DL (32.0-36.0) Red Cell Distribution Width 13.0 % (11.6-14.8) Platelet Count 147 K/UL (150-450) L Mean Platelet Volume 5.5 FL (6.5-10.1) L Neutrophils (%) (Auto) % (45.0-75.0) Lymphocytes (%) (Auto) % (20.0-45.0) Monocytes (%) (Auto) % (1.0-10.0) Eosinophils (%) (Auto) % (0.0-3.0) Basophils (%) (Auto) % (0.0-2.0) Differential Total Cells Counted 100 Neutrophils % (Manual) 89 % (45-75) H Lymphocytes % (Manual) 5 % (20-45) L Monocytes % (Manual) 6 % (1-10) Eosinophils % (Manual) 0 % (0-3) Basophils % (Manual) 0 % (0-2) Band Neutrophils 0 % (0-8) Platelet Estimate Decreased L Platelet Morphology Normal Macrocytosis 1+ Sodium Level 137 MMOL/L (136-145) Potassium Level 2.9 MMOL/L (3.5-5.1) L Chloride Level 102 MMOL/L (98-107) Carbon Dioxide Level 25 MMOL/L (21-32) Anion Gap 10 mmol/L (5-15) Blood Urea Nitrogen 27 mg/dL (7-18) H Creatinine 1.4 MG/DL (0.55-1.30) H Estimat Glomerular Filtration Rate mL/min (>60) Glucose Level 106 MG/DL (74-106) Calcium Level 9.2 MG/DL (8.5-10.1) Phosphorus Level 2.4 MG/DL (2.5-4.9) L Magnesium Level 1.9 MG/DL (1.8-2.4) Total Bilirubin 0.7 MG/DL (0.2-1.0) Aspartate Amino Transf (AST/SGOT) 21 U/L (15-37) Alanine Aminotransferase (ALT/SGPT) 20 U/L (12-78) Alkaline Phosphatase 82 U/L (46-116) Total Protein 6.9 G/DL (6.4-8.2) Albumin 2.5 G/DL (3.4-5.0) L Globulin 4.4 g/dL Albumin/Globulin Ratio 0.6 (1.0-2.7) L Current Medications Medications (Trade) Dose Ordered Sig/Mary Beth Route PRN Reason Start Time Stop Time Status Last Admin Dose Admin Acetaminophen (Tylenol) 650 mg Q4H PRN ORAL T>100.5 10/05/17 19:45 11/04/17 19:44 10/07/17 16:09 Albuterol/ Ipratropium (Albuterol/ Ipratropium) 3 ml Q4H PRN HHN Shortness of Breath 10/05/17 19:45 10/10/17 19:44 Finasteride (Proscar) 5 mg DAILY ORAL 10/06/17 09:00 11/05/17 08:59 10/08/17 10:11 Heparin Sodium (Porcine) (Heparin 5000 units/ml) 5,000 units EVERY 12 HOURS SUBQ 10/05/17 21:00 11/04/17 20:59 10/08/17 10:14 Meropenem 2 gm/ Sodium Chloride 110 ml @ 110 mls/hr Q12HR@1100,2300 IVPB 10/07/17 23:00 10/12/17 22:59 10/07/17 23:41 Morphine Sulfate (Morphine Sulfate) 2 mg Q4H PRN IVP Moderate Pain (Pain Scale 4-6) 10/05/17 19:45 10/12/17 19:44 Ondansetron HCl (Zofran) 4 mg Q6H PRN IVP Nausea & Vomiting 10/05/17 19:45 11/04/17 19:44 Phenazopyridine HCl (Pyridium) 100 mg DAILYPRN PRN ORAL dysuria 10/05/17 19:45 11/04/17 19:44 Polyethylene Glycol (Miralax) 17 gm DAILYPRN PRN ORAL Constipation 10/05/17 19:45 11/04/17 19:44 Tamsulosin HCl (Flomax) 0.4 mg BEDTIME ORAL 10/05/17 21:00 11/04/17 20:59 10/07/17 20:41 Temazepam (Restoril) 15 mg HSPRN PRN ORAL Insomnia 10/05/17 19:45 10/12/17 19:44 Ana Jay M.D. Oct 08, 2017 11:41
[2017-10-08 11:56] VITALS: BP 129/79
[2017-10-08] MEDS: Ertapenem 1 GM in NS 55 ML IVPB SCH (14:18)
[2017-10-08 16:00] VITALS: BP 138/65
--- NOTE | 2017-10-08 18:10 | Pulmonology Progress Note ---
Assessment/Plan Problems: (1) Sepsis (2) UTI (urinary tract infection) (3) Altered level of consciousness (4) BPH (benign prostatic hyperplasia) Assessment/Plan ESBL sepsis continue abx, changed by Id iv fluids check electroltyes renal w/u dvt prophylaxis. Subjective ROS Limited/Unobtainable: No Constitutional: Reports: no symptoms HEENT: Repors: no symptoms Respiratory: Reports: no symptoms Allergies: Coded Allergies: No Known Allergies (Unverified , 10/05/17) Objective Last 24 Hour Vital Signs Date Time Temp Pulse Resp B/P (MAP) Pulse Ox O2 Delivery O2 Flow Rate FiO2 10/08/17 11:56 97.5 82 20 129/79 98 10/08/17 09:48 77 20 Room Air 21 10/08/17 08:22 98.0 105 20 134/63 97 10/08/17 04:00 99.1 89 18 139/81 95 10/08/17 04:00 Room Air 10/08/17 00:00 Room Air 10/08/17 00:00 97.7 83 18 131/80 96 10/07/17 20:00 99.9 81 20 133/78 97 10/07/17 20:00 Room Air Intake and Output 10/07/17 10/08/17 19:00 07:00 Intake Total 420 ml 600.000 ml Output Total 1300 ml 1025 ml Balance -880 ml -425.000 ml Intake Oral 420 ml 240 ml IV Total 360.000 ml Output Urine Total 1300 ml 1025 ml Objective General Appearance: WN HEENT: normocephalic, atraumatic Respiratory/Chest: chest wall non-tender, lungs clear Cardiovascular: normal peripheral pulses, normal rate Abdomen: normal bowel sounds, no organomegaly Extremities: no cyanosis Skin: no rash Neurologic/Psychiatric: transcription II-XII grossly normal, alert Lymphatic: no neck adenopathy Microbiology Date/Time Source Procedure Growth Status 10/06/17 14:10 Stool Clostridium difficile Toxin Assay - Final Complete Laboratory Tests 10/07/17 18:30: Urine Color Pale yellow, Urine Appearance Slightly cloudy, Urine pH 5, Urine Specific [place] 1.015, Urine Protein 3+H, Urine Glucose (UA) Negative, Urine Ketones Negative, Urine Occult Blood 5+H, Urine Nitrite Negative, Urine Bilirubin Negative, Urine Urobilinogen Normal, Urine Leukocyte Esterase 1+H, Urine RBC 30-40H, Urine WBC 5-10H, Urine Squamous Epithelial Cells None, Urine Bacteria Few, Urine Eosinophils None seen, Urine Random Sodium 23, Urine Potassium Timed 30 10/07/17 18:50: Uric Acid 5.5, Total Creatine Kinase 82, Vancomycin Level Trough 6.4 10/08/17 05:20: White Blood Count 8.4, Red Blood Count 3.68L, Hemoglobin 12.8L, Hematocrit 37.1L , Mean Corpuscular Volume 101H, Mean Corpuscular Hemoglobin 34.7H, Mean Corpuscular Hemoglobin Concent 34.4, Red Cell Distribution Width 13.0, Platelet Count 147L, Mean Platelet Volume 5.5L, Neutrophils (%) (Auto) , Lymphocytes (%) (Auto) , Monocytes (%) (Auto) , Eosinophils (%) (Auto) , Basophils (%) (Auto) , Differential Total Cells Counted 100, Neutrophils % (Manual) 89H, Lymphocytes % (Manual) 5L, Monocytes % (Manual) 6, Eosinophils % (Manual) 0, Basophils % ( Manual) 0, Band Neutrophils 0, Platelet Estimate DecreasedL, Platelet Morphology Normal, Macrocytosis 1+, Sodium Level 137, Potassium Level 2.9L, Chloride Level 102, Carbon Dioxide Level 25, Anion Gap 10, Blood Urea Nitrogen 27H, Creatinine 1.4H, Estimat Glomerular Filtration Rate , Glucose Level 106, Calcium Level 9.2, Phosphorus Level 2.4L, Magnesium Level 1.9, Total Bilirubin 0.7, Aspartate Amino Transf (AST/SGOT) 21, Alanine Aminotransferase (ALT/SGPT) 20, Alkaline Phosphatase 82, Total Protein 6.9, Albumin 2.5L, Globulin 4.4, Albumin/Globulin Ratio 0.6L Current Medications Medications (Trade) Dose Ordered Sig/Mary Beth Route PRN Reason Start Time Stop Time Status Last Admin Dose Admin Acetaminophen (Tylenol) 650 mg Q4H PRN ORAL T>100.5 10/05/17 19:45 11/04/17 19:44 10/07/17 16:09 Albuterol/ Ipratropium (Albuterol/ Ipratropium) 3 ml Q4H PRN HHN Shortness of Breath 10/05/17 19:45 10/10/17 19:44 Ertapenem 1 gm/ Sodium Chloride 55 ml @ 110 mls/hr Q24H IVPB 10/08/17 14:00 10/13/17 13:59 10/08/17 14:18 Finasteride (Proscar) 5 mg DAILY ORAL 10/06/17 09:00 11/05/17 08:59 10/08/17 10:11 Heparin Sodium (Porcine) (Heparin 5000 units/ml) 5,000 units EVERY 12 HOURS SUBQ 10/05/17 21:00 11/04/17 20:59 10/08/17 10:14 Morphine Sulfate (Morphine Sulfate) 2 mg Q4H PRN IVP Moderate Pain (Pain Scale 4-6) 10/05/17 19:45 10/12/17 19:44 Ondansetron HCl (Zofran) 4 mg Q6H PRN IVP Nausea & Vomiting 10/05/17 19:45 11/04/17 19:44 Phenazopyridine HCl (Pyridium) 100 mg DAILYPRN PRN ORAL dysuria 10/05/17 19:45 11/04/17 19:44 Polyethylene Glycol (Miralax) 17 gm DAILYPRN PRN ORAL Constipation 10/05/17 19:45 11/04/17 19:44 Tamsulosin HCl (Flomax) 0.4 mg BEDTIME ORAL 10/05/17 21:00 11/04/17 20:59 10/07/17 20:41 Temazepam (Restoril) 15 mg HSPRN PRN ORAL Insomnia 10/05/17 19:45 10/12/17 19:44 JOHN PAUL ESPINOSA Oct 08, 2017 18:09
--- NOTE | 2017-10-08 18:20 | Physician Query ---
--------- THIS DOCUMENT IS A PERMANENT PART OF THE MEDICAL RECORD --------- PLEASE COMPLETE DOCUMENT BEFORE SIGNING Dear Dr. Diaz Date: _10/08/2017 Station Examiner/CDS Name: _Francisco Thorne MD Station Examiner / CDS Phone #_[phone] ___ Exercise your independent professional judgment when responding to query. Question asked do not imply a particular answer is desired/expected. Clinical Documentation States: "Altered Level of Consciousness" documented in Dr. Daly's Notes Clinical Findings Show: "Sepsis 2ry to ESBL Bacteremia and UTI" as per 10/08 Infectious Disease Progress Note Please indicate the nature and chronicity of the condition below: [] Metabolic Encephalopathy [] Toxic Encephalopathy [] Toxic - Metabolic Encephalopathy [] Progressive Encephalopathy [] Encephalopathy, Other [] Other: [] Not Applicable Severity [] Acute [] Chronic [] Acute on Chronic [] Unable to determine Condition Present on Admission: [] Yes [] No []Clinically Undeterminable Please also document in your Progress Notes and/or Discharge Summary and indicate if the condition was present on admission. JOHN PAUL DALY M.D. Date & Time [facility]
[2017-10-08 20:00] VITALS: BP 139/82
[2017-10-08] MEDS: Tamsulosin 0.4mg cap ORAL SCH (21:04)
[2017-10-09] VITALS: BP 139/86
[2017-10-09 04:00] VITALS: BP 135/77
[2017-10-09 08:00] VITALS: BP 119/76
[2017-10-09 08:14] LABS: APPEARANCE,URINE SLIGHTLY CLOUDY; BILIRUBIN, URINE NEGATIVE (NEGATIVE); COLOR,URINE PALE YELLOW; GLUCOSE, URINE (UA) NEGATIVE (NEGATIVE); KETONES,URINE NEGATIVE (NEGATIVE); LEUKOCYTE ESTERASE ,URINE 1+ (NEGATIVE); NITRITE,URINE NEGATIVE (NEGATIVE); PH,URINE 6 (4.5-8.0); PROTEIN,URINE 3+ (NEGATIVE); UROBILINOGEN,URINE NORMAL MG/DL (0.0-1.0)
--- NOTE | 2017-10-09 08:45 | Diagnostic Imaging Report ---
Indication: Abnormal renal function tests Technique: Grayscale and duplex images of the kidneys, retroperitoneum, and bladder were obtained. Comparison: none Findings: Right kidney measures 11.9 cm in length. Left kidney measures 10.8 cm in length. Both kidneys demonstrate normal echogenicity. No hydronephrosis. There is a hypoechoic masslike lesion adjacent to or arising from the medial upper pole of the right kidney which measures 4.9 cm in diameter. There is a small left renal parapelvic cyst. Normal inferior vena cava. Bladder is empty, containing a Lopez catheter. Impression: Possible 4.9 cm exophytic right renal mass. Recommend CT for further evaluation. Negative for hydronephrosis Incidental findings small left renal parapelvic cyst Empty bladder, containing a Lopez catheter Dr. Daly notified at the time of interpretation
[2017-10-09] MEDS: Heparin 5000 units/ml inj SUBQ SCH ×2 (09:00→20:39)
[2017-10-09 12:00] VITALS: BP 118/65
--- NOTE | 2017-10-09 12:09 | Infectious Diseases Prog Note ---
Assessment/Plan Assessment/Plan Assessment: Sepsis 2ry to ESBL Bacteremia and UTI -Bcx 10/05 1 ESBL e,coli; Bcx 10/06 Bcx p UTI- -u/a wbc 15-20,n it +; ucx >100 ESBL E,coli, >100 Morganella morgani (S Ceftriaxone, levo, ertapenem)] ?R kidney mass- r/o abscess vs malignancy vs cyst -US Kidney: Possible 4.9 cm exophytic right renal mass. Recommend CT for further evaluation. Negative for hydronephrosis. Incidental findings small left renal parapelvic cyst/ Empty bladder, containing a Lopez catheter Fever/leukocytosis- 2ry to above; fever improving, leukocytosis resolved -CXR: Borderline cardiomegaly and suggestion of mild pulmonary vascular congestion. No focal consolidation. -influenza neg SUDHA, no hydronephrosis BPH HTN Plan: -Continue ertapenem abx d#3/ for ESBL E.coli bacteremia and ESBL E,coli and morganella UTI -10/09 SP Meropenem #2 -10/07 SP IV Vancomyin #3, Ertapenem x1, CEfepime #3 -10/05 Ceftriaxone x1 -CT abd/p wo to further evaluate ?R renal mass (r/o abscess) -f/u repeat 2 sets of Bcx -f/u cx -Monitor CBC/BMP, temperatures -aspiration precautions Thank you for this consultation. Will continue to follow along with you. Discussed with RN Subjective Allergies: Coded Allergies: No Known Allergies (Unverified , 10/05/17) Subjective afebrile 36 no leukocytosis repeat Bcx p renal US with possible mass. Objective Vital Signs Last 24 Hour Vital Signs Date Time Temp Pulse Resp B/P (MAP) Pulse Ox O2 Delivery O2 Flow Rate FiO2 10/09/17 08:42 88 18 Room Air 21 10/09/17 08:00 97.7 89 20 119/76 96 10/09/17 04:00 98.1 77 20 135/77 98 Room Air 10/09/17 00:00 98.1 85 20 139/86 98 Room Air 10/08/17 20:00 98.2 83 21 139/82 96 Room Air 10/08/17 19:40 82 20 Room Air 21 10/08/17 16:00 98.0 105 18 138/65 98 Height (Feet): 5 Height (Inches): 8.00 Weight (Pounds): 162 Objective General Appearance: no apparent distress, lethargic Head: normocephalic Eyes: bilateral eye normal inspection, bilateral eye PERRL ENT: normal ENT inspection Neck: normal inspection Respiratory: chest non-tender, lungs clear, normal breath sounds, speaking full sentences Cardiovascular regular rate, rhythm, no edema Gastrointestinal: normal bowel sounds, non tender, soft, non-distended, no guarding, no rebound Rectal: deferred Genitourinary: no CVA tenderness Musculoskeletal: normal inspection Skin: normal inspection Microbiology Date/Time Source Procedure Growth Status 10/06/17 14:10 Stool Clostridium difficile Toxin Assay - Final Complete Laboratory Tests Test 10/09/17 07:38 Urine Color Pale yellow Urine Appearance Slightly cloudy Urine pH 6 (4.5-8.0) Urine Specific [place] 1.010 (1.005-1.035) Urine Protein 3+ (NEGATIVE) H Urine Glucose (UA) Negative (NEGATIVE) Urine Ketones Negative (NEGATIVE) Urine Occult Blood 5+ (NEGATIVE) H Urine Nitrite Negative (NEGATIVE) Urine Bilirubin Negative (NEGATIVE) Urine Urobilinogen Normal MG/DL (0.0-1.0) Urine Leukocyte Esterase 1+ (NEGATIVE) H Urine RBC 60-80 /HPF (0 - 0) H Urine WBC 2-4 /HPF (0 - 0) Urine Squamous Epithelial Cells Occasional /LPF Urine Bacteria Occasional /HPF (NONE) Urine Eosinophils None seen Urine Random Sodium 70 MEQ/L (20-110) Urine Potassium Timed 25 mmol/L (12-62) Current Medications Medications (Trade) Dose Ordered Sig/Mary Beth Route PRN Reason Start Time Stop Time Status Last Admin Dose Admin Acetaminophen (Tylenol) 650 mg Q4H PRN ORAL T>100.5 10/05/17 19:45 11/04/17 19:44 10/07/17 16:09 Albuterol/ Ipratropium (Albuterol/ Ipratropium) 3 ml Q4H PRN HHN Shortness of Breath 10/05/17 19:45 10/10/17 19:44 Ertapenem 1 gm/ Sodium Chloride 55 ml @ 110 mls/hr Q24H IVPB 10/08/17 14:00 10/13/17 13:59 10/08/17 14:18 Finasteride (Proscar) 5 mg DAILY ORAL 10/06/17 09:00 11/05/17 08:59 10/09/17 10:11 Heparin Sodium (Porcine) (Heparin 5000 units/ml) 5,000 units EVERY 12 HOURS SUBQ 10/05/17 21:00 11/04/17 20:59 10/08/17 10:14 Morphine Sulfate (Morphine Sulfate) 2 mg Q4H PRN IVP Moderate Pain (Pain Scale 4-6) 10/05/17 19:45 10/12/17 19:44 Ondansetron HCl (Zofran) 4 mg Q6H PRN IVP Nausea & Vomiting 10/05/17 19:45 11/04/17 19:44 Phenazopyridine HCl (Pyridium) 100 mg DAILYPRN PRN ORAL dysuria 10/05/17 19:45 11/04/17 19:44 Polyethylene Glycol (Miralax) 17 gm DAILYPRN PRN ORAL Constipation 10/05/17 19:45 11/04/17 19:44 Tamsulosin HCl (Flomax) 0.4 mg BEDTIME ORAL 10/05/17 21:00 11/04/17 20:59 10/08/17 21:04 Temazepam (Restoril) 15 mg HSPRN PRN ORAL Insomnia 10/05/17 19:45 10/12/17 19:44 Ana Jay M.D. Oct 09, 2017 12:09
[2017-10-09] MEDS: Ertapenem 1 GM in NS 55 ML IVPB SCH (14:35)
[2017-10-09] MEDS ORDERED: Tubing IV Secondary IV ONE (15:20)
[2017-10-09 16:00] VITALS: BP 120/74
--- NOTE | 2017-10-09 16:01 | Diagnostic Imaging Report ---
Indication: Renal mass suspected on recent ultrasound Technique: Spiral acquisitions obtained through the abdomen and pelvis. No oral contrast utilized, reason not stated. No IV contrast utilized, per referring physician request.. Multiplanar reconstructions were generated. Total dose length product 791.41 mGycm. CTDIvol(s) 12.54,12.57 mGy. Dose reduction achieved using automated exposure control Comparison: Reference made to renal ultrasound 10/07/2017 Findings: There is some image degradation due to motion artifact Lack of IV contrast limits assessment of the renal parenchyma. 4.4 x 3.3 x 4.1 cm mass with soft tissue attenuation is seen coming off of the medial interpolar region of the right kidney. This demonstrates slightly heterogeneous attenuation but is mostly slightly hyperattenuating compared to normal renal parenchyma. A 1 cm cyst is seen in the upper pole. An exophytic 1.5 cm cyst is seen coming off of the lower pole. A 2.3 cm cyst is seen in the left upper pole. No renal or ureteral calculi, hydronephrosis, or hydroureter. There is nonspecific bilateral perinephric fat stranding. The bladder contains a Lopez catheter. It contains a small amount of urine despite the presence of the Lopez catheter. There is an enlarged prostate which protrudes into the bladder floor, measures 5.5 x 4.3 x 5.3 cm. Lack of IV contrast limits assessment of the other solid organs. The liver demonstrates a subcentimeter low-attenuation lesion in segment 5 which is too small to characterize. The gallbladder, bile ducts, pancreas are unremarkable. The spleen is upper limits of normal in size. No retroperitoneal or mesenteric mass or adenopathy. No pelvic mass or adenopathy. The appendix is normal. There is a small amount of free pelvic fluid present. No evidence of diverticulosis or diverticulitis. No small bowel distention. Distal esophagus, stomach, duodenum are unremarkable. No free intraperitoneal air. The included lung bases demonstrate atelectasis and scarring on the right. There is probably some pleural fluid on the right, although visualization of this area is severely hampered by motion artifact. There is bilateral L4 spondylolysis, with grade 1 L4 on L5 spondylolisthesis. There is bilateral L5 spondylolysis, with only minimal if any alignment abnormality. There are calcifications of the dura posterior to L5. There is slight superior endplate compression of the L4 vertebral body. There is vertebra plana compression fracture deformity of the T10 vertebral body. There is also slight compression fracture deformity of the T9 vertebral body. There is degenerative spondylosis, with intra-articular fairly extensive bilateral lower lumbar facet arthrosis. There is [id number] contact of the L3 and L4 spinous processes Impression: Somewhat limited exam, as described 4.4 cm right renal mass described on recent renal ultrasound is confirmed, demonstrates soft tissue attenuation. Suboptimally characterized given the absence of contrast administration, but sonographic and CT of the appearance nonetheless suspicious for renal cell carcinoma Prostatomegaly. Lopez catheter. Note small amount of retained urine despite this Bilateral renal cysts incidentally noted Small amount of free intraperitoneal fluid in the pelvis Bilateral L4 and L5 spondylolysis. Grade 1 L4 on L5 spondylolisthesis Multiple compression fractures, age indeterminate. Consider MRI for better characterization if clinically relevant Other degenerative changes of the lumbar spine as described Segment 5 subcentimeter low-attenuation lesion, too small to characterize. Most likely benign simple cysts or bile hamartomas Probable small right pleural effusion The CT scanner at [facility] is accredited by the [employer] and the scans are performed using protocols designed to limit radiation exposure to as low as reasonably achievable to attain images of sufficient resolution adequate for diagnostic evaluation.
--- NOTE | 2017-10-09 19:14 | Pulmonology Progress Note ---
Assessment/Plan Problems: (1) Acute encephalopathy (2) Sepsis (3) UTI (urinary tract infection) (4) Altered level of consciousness (5) BPH (benign prostatic hyperplasia) Assessment/Plan ESBL sepsis continue abx, changed by Id iv fluids check electroltyes renal w/u dvt prophylaxis. Subjective Interval Events: improivng Allergies: Coded Allergies: No Known Allergies (Unverified , 10/05/17) Objective Last 24 Hour Vital Signs Date Time Temp Pulse Resp B/P (MAP) Pulse Ox O2 Delivery O2 Flow Rate FiO2 10/09/17 16:00 97.7 80 20 120/74 100 10/09/17 12:00 97.9 82 20 118/65 99 10/09/17 08:42 88 18 Room Air 21 10/09/17 08:00 97.7 89 20 119/76 96 10/09/17 04:00 98.1 77 20 135/77 98 Room Air 10/09/17 00:00 98.1 85 20 139/86 98 Room Air 10/08/17 20:00 98.2 83 21 139/82 96 Room Air 10/08/17 19:40 82 20 Room Air 21 Intake and Output 10/08/17 10/09/17 19:00 07:00 Intake Total 720 ml Output Total 1300 ml Balance 720 ml -1300 ml Intake Oral 720 ml Output Urine Total 1300 ml Objective General Appearance: WN HEENT: normocephalic, atraumatic Respiratory/Chest: chest wall non-tender, lungs clear Cardiovascular: normal peripheral pulses, normal rate Abdomen: normal bowel sounds, no organomegaly Extremities: no cyanosis Skin: no rash 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, alert Lymphatic: no neck adenopathy Laboratory Tests 10/09/17 07:38: Urine Color Pale yellow, Urine Appearance Slightly cloudy, Urine pH 6, Urine Specific [place] 1.010, Urine Protein 3+H, Urine Glucose (UA) Negative, Urine Ketones Negative, Urine Occult Blood 5+H, Urine Nitrite Negative, Urine Bilirubin Negative, Urine Urobilinogen Normal, Urine Leukocyte Esterase 1+H, Urine RBC 60-80H, Urine WBC 2-4, Urine Squamous Epithelial Cells Occasional, Urine Bacteria Occasional, Urine Eosinophils None seen, Urine Random Sodium 70, Urine Potassium Timed 25 Current Medications Medications (Trade) Dose Ordered Sig/Mary Beth Route PRN Reason Start Time Stop Time Status Last Admin Dose Admin Acetaminophen (Tylenol) 650 mg Q4H PRN ORAL T>100.5 10/05/17 19:45 11/04/17 19:44 10/07/17 16:09 Albuterol/ Ipratropium (Albuterol/ Ipratropium) 3 ml Q4H PRN HHN Shortness of Breath 10/05/17 19:45 10/10/17 19:44 Ertapenem 1 gm/ Sodium Chloride 55 ml @ 110 mls/hr Q24H IVPB 10/08/17 14:00 10/13/17 13:59 10/09/17 14:35 Finasteride (Proscar) 5 mg DAILY ORAL 10/06/17 09:00 11/05/17 08:59 10/09/17 10:11 Heparin Sodium (Porcine) (Heparin 5000 units/ml) 5,000 units EVERY 12 HOURS SUBQ 10/05/17 21:00 11/04/17 20:59 10/08/17 10:14 Morphine Sulfate (Morphine Sulfate) 2 mg Q4H PRN IVP Moderate Pain (Pain Scale 4-6) 10/05/17 19:45 10/12/17 19:44 Ondansetron HCl (Zofran) 4 mg Q6H PRN IVP Nausea & Vomiting 10/05/17 19:45 11/04/17 19:44 Phenazopyridine HCl (Pyridium) 100 mg DAILYPRN PRN ORAL dysuria 10/05/17 19:45 11/04/17 19:44 Polyethylene Glycol (Miralax) 17 gm DAILYPRN PRN ORAL Constipation 10/05/17 19:45 11/04/17 19:44 Tamsulosin HCl (Flomax) 0.4 mg BEDTIME ORAL 10/05/17 21:00 11/04/17 20:59 10/08/17 21:04 Temazepam (Restoril) 15 mg HSPRN PRN ORAL Insomnia 10/05/17 19:45 10/12/17 19:44 JOHN PAUL ESPINOSA Oct 09, 2017 19:14
[2017-10-09 19:57] VITALS: BP 142/82
[2017-10-09] MEDS: Tamsulosin 0.4mg cap ORAL SCH (20:52)
[2017-10-10] VITALS: BP 120/76
[2017-10-10 04:00] VITALS: BP 139/75
[2017-10-10 07:03] LABS: BASOPHILS % (AUTO) 0.3 % (0.0-2.0); EOSINOPHILS % (AUTO) 0.9 % (0.0-3.0); HEMOGLOBIN 13.3 G/DL (14.2-18.0); MEAN CORPUSCULAR VOLUME 99 FL (80-99); MONOCYTES % (AUTO) 13.3 % (1.0-10.0); NEUTROPHILS % (AUTO) 70.5 % (45.0-75.0); PLATELET COUNT 149 K/UL (150-450); RED BLOOD COUNT 3.75 M/UL (4.70-6.10); RED CELL DISTRIBUTION WIDTH 12.5 % (11.6-14.8); WHITE BLOOD COUNT 5.2 K/UL (4.8-10.8)
[2017-10-10 07:23] LABS: ALANINE AMINOTRANSFERASE 39 U/L (12-78); ALBUMIN 2.5 G/DL (3.4-5.0); ALBUMIN/GLOBULIN RATIO 0.6 (1.0-2.7); ALKALINE PHOSPHATASE 78 U/L (46-116); ANION GAP 9 mmol/L (5-15); ASPARTATE AMINO TRANSFERASE 32 U/L (15-37); BILIRUBIN,TOTAL 0.7 MG/DL (0.2-1.0); BLOOD UREA NITROGEN 29 mg/dL (7-18); CARBON DIOXIDE 26 MMOL/L (21-32); CHLORIDE 103 MMOL/L (98-107); CREATININE 1.2 MG/DL (0.55-1.30); POTASSIUM 3.5 MMOL/L (3.5-5.1); SODIUM 138 MMOL/L (136-145)
[2017-10-10] MEDS: Heparin 5000 units/ml inj SUBQ SCH ×2 (07:55→20:28)
[2017-10-10 08:30] VITALS: BP 120/75
--- NOTE | 2017-10-10 11:12 | Infectious Diseases Prog Note ---
Assessment/Plan Assessment/Plan Assessment: Sepsis 2ry to ESBL Bacteremia and UTI -Bcx 10/05 09/12 ESBL e,coli; Bcx 10/06 Bcx p UTI- -u/a wbc 15-20,n it +; ucx >100 ESBL E,coli, >100 Morganella morgani (S Ceftriaxone, levo, ertapenem)] ?R kidney mass- r/o abscess vs malignancy vs cyst -CT abd/p wo: Somewhat limited exam, as described 4.4 cm right renal mass described on recent renal ultrasound is confirmed, demonstrates soft tissue attenuation. Suboptimally characterized given the absence of contrast administration, but sonographic and CT of the appearance nonetheless suspicious for renal cell carcinoma. Prostatomegaly. Lopez catheter. Note small amount of retained urine despite this. Bilateral renal cysts incidentally noted. Small amount of free intraperitoneal fluid in the pelvis. Bilateral L4 and L5 spondylolysis. Grade 1 L4 on L5 spondylolisthesis. Multiple compression fractures, age indeterminate. Consider MRI for better. characterization if clinically relevant. Segment 5 subcentimeter low-attenuation lesion, too small to characterize. Most likely benign simple cysts or bile hamartomas. Probable small right pleural effusion -US Kidney: Possible 4.9 cm exophytic right renal mass. Recommend CT for further evaluation. Negative for hydronephrosis. Incidental findings small left renal parapelvic cyst/ Empty bladder, containing a Lopez catheter Fever/leukocytosis- 2ry to above; fever improving, leukocytosis resolved -CXR: Borderline cardiomegaly and suggestion of mild pulmonary vascular congestion. No focal consolidation. -influenza neg SUDHA, no hydronephrosis BPH HTN Plan: -Continue ertapenem abx d#12/21 for ESBL E.coli bacteremia and ESBL E,coli and morganella UTI -10/09 SP Meropenem #2 -10/07 SP IV Vancomyin #3, Ertapenem x1, CEfepime #3 -10/05 Ceftriaxone x1 -REcommend urology evaluation -once Cr normalized will benefit from contrast CT abd/p to better characterize Renal mass (?malignancy, r/o abscess) -f/u repeat 2 sets of Bcx -f/u cx -Monitor CBC/BMP, temperatures -aspiration precautions Thank you for this consultation. Will continue to follow along with you. Discussed with RN Subjective Allergies: Coded Allergies: No Known Allergies (Unverified , 10/05/17) Subjective afebrile >46hr no leukocytosis repeat Bcx p feels better Objective Vital Signs Last 24 Hour Vital Signs Date Time Temp Pulse Resp B/P (MAP) Pulse Ox O2 Delivery O2 Flow Rate FiO2 10/10/17 08:30 97.2 78 18 120/75 98 Room Air 10/10/17 07:00 75 18 Room Air 21 10/10/17 04:00 97.8 70 18 139/75 98 Room Air 10/10/17 00:00 96.6 71 18 120/76 98 10/09/17 21:23 72 18 Room Air 21 10/09/17 19:57 97.9 74 18 142/82 99 10/09/17 16:00 97.7 80 20 120/74 100 10/09/17 12:00 97.9 82 20 118/65 99 Height (Feet): 5 Height (Inches): 8.00 Weight (Pounds): 162 Objective General Appearance: no apparent distress, lethargic Head: normocephalic Eyes: bilateral eye normal inspection, bilateral eye PERRL ENT: normal ENT inspection Neck: normal inspection Respiratory: chest non-tender, lungs clear, normal breath sounds, speaking full sentences Cardiovascular regular rate, rhythm, no edema Gastrointestinal: normal bowel sounds, non tender, soft, non-distended, no guarding, no rebound Rectal: deferred Genitourinary: no CVA tenderness Musculoskeletal: normal inspection Skin: normal inspection Laboratory Tests Test 10/10/17 04:50 10/10/17 04:55 White Blood Count 5.2 K/UL (4.8-10.8) Red Blood Count 3.75 M/UL (4.70-6.10) L Hemoglobin 13.3 G/DL (14.2-18.0) L Hematocrit 37.0 % (42.0-52.0) L Mean Corpuscular Volume 99 FL (80-99) Mean Corpuscular Hemoglobin 35.6 PG (27.0-31.0) H Mean Corpuscular Hemoglobin Concent 36.0 G/DL (32.0-36.0) Red Cell Distribution Width 12.5 % (11.6-14.8) Platelet Count 149 K/UL (150-450) L Mean Platelet Volume 6.1 FL (6.5-10.1) L Neutrophils (%) (Auto) 70.5 % (45.0-75.0) Lymphocytes (%) (Auto) 15.0 % (20.0-45.0) L Monocytes (%) (Auto) 13.3 % (1.0-10.0) H Eosinophils (%) (Auto) 0.9 % (0.0-3.0) Basophils (%) (Auto) 0.3 % (0.0-2.0) Sodium Level 138 MMOL/L (136-145) Potassium Level 3.5 MMOL/L (3.5-5.1) Chloride Level 103 MMOL/L (98-107) Carbon Dioxide Level 26 MMOL/L (21-32) Anion Gap 9 mmol/L (5-15) Blood Urea Nitrogen 29 mg/dL (7-18) H Creatinine 1.2 MG/DL (0.55-1.30) Estimat Glomerular Filtration Rate mL/min (>60) Glucose Level 98 MG/DL (74-106) Calcium Level 9.0 MG/DL (8.5-10.1) Total Bilirubin 0.7 MG/DL (0.2-1.0) Aspartate Amino Transf (AST/SGOT) 32 U/L (15-37) Alanine Aminotransferase (ALT/SGPT) 39 U/L (12-78) Alkaline Phosphatase 78 U/L (46-116) Total Protein 6.5 G/DL (6.4-8.2) Albumin 2.5 G/DL (3.4-5.0) L Globulin 4.0 g/dL Albumin/Globulin Ratio 0.6 (1.0-2.7) L Current Medications Medications (Trade) Dose Ordered Sig/Mary Beth Route PRN Reason Start Time Stop Time Status Last Admin Dose Admin Acetaminophen (Tylenol) 650 mg Q4H PRN ORAL T>100.5 10/05/17 19:45 11/04/17 19:44 10/07/17 16:09 Albuterol/ Ipratropium (Albuterol/ Ipratropium) 3 ml Q4H PRN HHN Shortness of Breath 10/05/17 19:45 10/10/17 19:44 Ertapenem 1 gm/ Sodium Chloride 55 ml @ 110 mls/hr Q24H IVPB 10/08/17 14:00 10/13/17 13:59 10/09/17 14:35 Finasteride (Proscar) 5 mg DAILY ORAL 10/06/17 09:00 11/05/17 08:59 10/10/17 07:55 Heparin Sodium (Porcine) (Heparin 5000 units/ml) 5,000 units EVERY 12 HOURS SUBQ 10/05/17 21:00 11/04/17 20:59 10/08/17 10:14 Morphine Sulfate (Morphine Sulfate) 2 mg Q4H PRN IVP Moderate Pain (Pain Scale 4-6) 10/05/17 19:45 10/12/17 19:44 Ondansetron HCl (Zofran) 4 mg Q6H PRN IVP Nausea & Vomiting 10/05/17 19:45 11/04/17 19:44 Phenazopyridine HCl (Pyridium) 100 mg DAILYPRN PRN ORAL dysuria 10/05/17 19:45 11/04/17 19:44 Polyethylene Glycol (Miralax) 17 gm DAILYPRN PRN ORAL Constipation 10/05/17 19:45 11/04/17 19:44 Tamsulosin HCl (Flomax) 0.4 mg BEDTIME ORAL 10/05/17 21:00 11/04/17 20:59 10/09/17 20:52 Temazepam (Restoril) 15 mg HSPRN PRN ORAL Insomnia 10/05/17 19:45 10/12/17 19:44 Ana Jay M.D. Oct 10, 2017 11:11
[2017-10-10 12:00] VITALS: BP 118/75
[2017-10-10] MEDS: Ertapenem 1 GM in NS 55 ML IVPB SCH (13:21)
[2017-10-10 16:00] VITALS: BP 133/78
[2017-10-10 20:00] VITALS: BP 143/85
[2017-10-10] MEDS: Tamsulosin 0.4mg cap ORAL SCH (20:28)
--- NOTE | 2017-10-10 22:23 | Pulmonology Progress Note ---
Assessment/Plan Problems: (1) Acute encephalopathy (2) Sepsis (3) UTI (urinary tract infection) (4) Altered level of consciousness (5) BPH (benign prostatic hyperplasia) Assessment/Plan ESBL sepsis continue abx, changed by Id iv fluids check electroltyes renal w/u dvt prophylaxis. dc planning home with iv abx d/w urology, repeat CT abdomen in 3 month Subjective ROS Limited/Unobtainable: No Constitutional: Reports: no symptoms HEENT: Repors: no symptoms Respiratory: Reports: no symptoms Allergies: Coded Allergies: No Known Allergies (Unverified , 10/05/17) Objective Last 24 Hour Vital Signs Date Time Temp Pulse Resp B/P (MAP) Pulse Ox O2 Delivery O2 Flow Rate FiO2 10/10/17 20:00 96.8 69 20 143/85 100 10/10/17 19:48 81 18 Room Air 21 10/10/17 16:00 97.2 70 18 133/78 98 Room Air 10/10/17 12:00 97.2 80 18 118/75 98 Room Air 10/10/17 08:30 97.2 78 18 120/75 98 Room Air 10/10/17 07:00 75 18 Room Air 21 10/10/17 04:00 97.8 70 18 139/75 98 Room Air 10/10/17 00:00 96.6 71 18 120/76 98 Intake and Output 10/09/17 10/10/17 19:00 07:00 Intake Total 680 ml 420 ml Output Total 400 ml 800 ml Balance 280 ml -380 ml Intake Oral 680 ml 420 ml Output Urine Total 400 ml 800 ml # Bowel Movements 1 Objective General Appearance: WN HEENT: normocephalic, atraumatic Respiratory/Chest: chest wall non-tender, lungs clear Cardiovascular: normal peripheral pulses, normal rate Abdomen: normal bowel sounds, no organomegaly Extremities: no cyanosis Skin: no rash 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, alert Lymphatic: no neck adenopathy Laboratory Tests 10/10/17 04:50: White Blood Count 5.2, Red Blood Count 3.75L, Hemoglobin 13.3L, Hematocrit 37.0L , Mean Corpuscular Volume 99, Mean Corpuscular Hemoglobin 35.6H, Mean Corpuscular Hemoglobin Concent 36.0, Red Cell Distribution Width 12.5, Platelet Count 149L, Mean Platelet Volume 6.1L, Neutrophils (%) (Auto) 70.5, Lymphocytes (%) (Auto) 15.0L, Monocytes (%) (Auto) 13.3H, Eosinophils (%) (Auto) 0.9, Basophils (%) (Auto) 0.3 10/10/17 04:55: Sodium Level 138, Potassium Level 3.5, Chloride Level 103, Carbon Dioxide Level 26, Anion Gap 9, Blood Urea Nitrogen 29H, Creatinine 1.2, Estimat Glomerular Filtration Rate , Glucose Level 98, Calcium Level 9.0, Total Bilirubin 0.7, Aspartate Amino Transf (AST/SGOT) 32, Alanine Aminotransferase (ALT/SGPT) 39, Alkaline Phosphatase 78, Total Protein 6.5, Albumin 2.5L, Globulin 4.0, Albumin/ Globulin Ratio 0.6L Current Medications Medications (Trade) Dose Ordered Sig/Mary Beth Route PRN Reason Start Time Stop Time Status Last Admin Dose Admin Acetaminophen (Tylenol) 650 mg Q4H PRN ORAL T>100.5 10/05/17 19:45 11/04/17 19:44 10/07/17 16:09 Ertapenem 1 gm/ Sodium Chloride 55 ml @ 110 mls/hr Q24H IVPB 10/08/17 14:00 10/13/17 13:59 10/10/17 13:21 Finasteride (Proscar) 5 mg DAILY ORAL 10/06/17 09:00 11/05/17 08:59 10/10/17 07:55 Heparin Sodium (Porcine) (Heparin 5000 units/ml) 5,000 units EVERY 12 HOURS SUBQ 10/05/17 21:00 11/04/17 20:59 10/08/17 10:14 Morphine Sulfate (Morphine Sulfate) 2 mg Q4H PRN IVP Moderate Pain (Pain Scale 4-6) 10/05/17 19:45 10/12/17 19:44 Ondansetron HCl (Zofran) 4 mg Q6H PRN IVP Nausea & Vomiting 10/05/17 19:45 11/04/17 19:44 Phenazopyridine HCl (Pyridium) 100 mg DAILYPRN PRN ORAL dysuria 10/05/17 19:45 11/04/17 19:44 Polyethylene Glycol (Miralax) 17 gm DAILYPRN PRN ORAL Constipation 10/05/17 19:45 11/04/17 19:44 Tamsulosin HCl (Flomax) 0.4 mg BEDTIME ORAL 10/05/17 21:00 11/04/17 20:59 10/10/17 20:28 Temazepam (Restoril) 15 mg HSPRN PRN ORAL Insomnia 10/05/17 19:45 10/12/17 19:44 JOHN PAUL ESPINOSA Oct 10, 2017 22:23
[2017-10-11] VITALS: BP 141/83
[2017-10-11 04:23] VITALS: BP 129/72
[2017-10-11 08:00] VITALS: BP 117/68
[2017-10-11] MEDS: Heparin 5000 units/ml inj SUBQ SCH ×2 (08:25→20:49)
--- NOTE | 2017-10-11 08:50 | Pulmonology Progress Note ---
Assessment/Plan Assessment/Plan ASSESSMENT Sepsis with E coli ESBL bacteremia ( 2 to UTI) E coli ESBL, Morganella UTI Acute encephalopathy (2 to sepsis )POA BPH R renal mass PLAN OF CARE [facility] floor Abx, ID follows Leukocytosi resolved, afebrile US with possible R renal mass CT A/P confirmed presence of R renal mass Continue Flomax and Proscar Pain management DVT prophylaxis Urology eval appreciated per urologist manuelito need partial nephrectomy in future depending on growth pattern. No intervention recommended right now. f/u 3 months office visit, will need to repeat imaging. dc plan for tomorrow ID to clarify abx regimen case discussed and evaluated by supervising physician Subjective Allergies: Coded Allergies: No Known Allergies (Unverified , 10/05/17) Subjective leukocytosis resolved, creat trending down urologist seen and evaluated Objective Last 24 Hour Vital Signs Date Time Temp Pulse Resp B/P (MAP) Pulse Ox O2 Delivery O2 Flow Rate FiO2 10/11/17 04:23 97.3 66 18 129/72 96 10/11/17 00:00 97.3 69 18 141/83 97 10/10/17 20:00 96.8 69 20 143/85 100 10/10/17 19:48 81 18 Room Air 21 10/10/17 16:00 97.2 70 18 133/78 98 Room Air 10/10/17 12:00 97.2 80 18 118/75 98 Room Air Intake and Output 10/10/17 10/11/17 19:00 07:00 Intake Total 110 ml Output Total 900 ml Balance 110 ml -900 ml IV Total 110 ml Output Urine Total 900 ml General Appearance: no acute distress HEENT: normocephalic, atraumatic, anicteric Respiratory/Chest: lungs clear, no respiratory distress Cardiovascular: normal rate, no JVD Abdomen: normal bowel sounds, soft, non tender, non distended Extremities: no edema Neurologic/Psychiatric: alert, responsive Musculoskeletal: normal muscle bulk Microbiology Date/Time Source Procedure Growth Status 10/09/17 13:10 Blood Blood Culture - Preliminary NO GROWTH AFTER 24 HOURS Resulted 10/09/17 13:05 Blood Blood Culture - Preliminary NO GROWTH AFTER 24 HOURS Resulted Current Medications Medications (Trade) Dose Ordered Sig/Mary Beth Route PRN Reason Start Time Stop Time Status Last Admin Dose Admin Acetaminophen (Tylenol) 650 mg Q4H PRN ORAL T>100.5 10/05/17 19:45 11/04/17 19:44 10/07/17 16:09 Ertapenem 1 gm/ Sodium Chloride 55 ml @ 110 mls/hr Q24H IVPB 10/08/17 14:00 10/13/17 13:59 10/10/17 13:21 Finasteride (Proscar) 5 mg DAILY ORAL 10/06/17 09:00 11/05/17 08:59 10/11/17 08:26 Heparin Sodium (Porcine) (Heparin 5000 units/ml) 5,000 units EVERY 12 HOURS SUBQ 10/05/17 21:00 11/04/17 20:59 10/08/17 10:14 Morphine Sulfate (Morphine Sulfate) 2 mg Q4H PRN IVP Moderate Pain (Pain Scale 4-6) 10/05/17 19:45 10/12/17 19:44 Ondansetron HCl (Zofran) 4 mg Q6H PRN IVP Nausea & Vomiting 10/05/17 19:45 11/04/17 19:44 Phenazopyridine HCl (Pyridium) 100 mg DAILYPRN PRN ORAL dysuria 10/05/17 19:45 11/04/17 19:44 Polyethylene Glycol (Miralax) 17 gm DAILYPRN PRN ORAL Constipation 10/05/17 19:45 11/04/17 19:44 Tamsulosin HCl (Flomax) 0.4 mg BEDTIME ORAL 10/05/17 21:00 11/04/17 20:59 10/10/17 20:28 Temazepam (Restoril) 15 mg HSPRN PRN ORAL Insomnia 10/05/17 19:45 10/12/17 19:44 Carissa Jacobs NP (Vanchtein) Oct 11, 2017 08:50
[2017-10-11 08:58] LABS: BASOPHILS % (AUTO) 0.2 % (0.0-2.0); EOSINOPHILS % (AUTO) 1.1 % (0.0-3.0); HEMATOCRIT 44.2 % (42.0-52.0); MEAN CORPUSCULAR VOLUME 102 FL (80-99); MONOCYTES % (AUTO) 9.2 % (1.0-10.0); NEUTROPHILS % (AUTO) 66.4 % (45.0-75.0); PLATELET COUNT 165 K/UL (150-450); RED BLOOD COUNT 4.33 M/UL (4.70-6.10); RED CELL DISTRIBUTION WIDTH 12.7 % (11.6-14.8); WHITE BLOOD COUNT 5.6 K/UL (4.8-10.8)
--- NOTE | 2017-10-11 09:05 | Consultation ---
History of Present Illness General Date patient seen: Oct 10, 2017 Time patient seen: 12:45 Chief Complaint: Altered Level of Consciousness Reason for Consultation: Right renal mass Present Illness HPI 77 yo male admitted for fever/sepsis workup. Etiology unclear but imaging showed right medial renal mass approximately 4 cm. Patient denies weight loss, flank pain, or hematuria. Allergies: Coded Allergies: No Known Allergies (Unverified , 10/05/17) Medication History Scheduled Finasteride* (Proscar*), 5 MG ORAL DAILY, (Reported) Fluconazole (Fluconazole), 100 MG ORAL DAILY, (Reported) Losartan Potassium* (Losartan Potassium*), 25 MG ORAL DAILY, (Reported) Tamsulosin Hcl (Tamsulosin Hcl*), 0.4 MG ORAL BEDTIME, (Reported) Patient History History Provided By: Patient, Medical Record Healthcare decision maker Resuscitation status Full Code Advanced Directive on File Past Medical/Surgical History Past Medical/Surgical History: (1) UTI (urinary tract infection) (2) BPH (benign prostatic hyperplasia) Review of Systems All Other Systems: negative except mentioned in HPI Physical Exam General Appearance: no apparent distress HEENT: normocephalic, atraumatic Respiratory/Chest: lungs clear, normal breath sounds Cardiovascular/Chest: normal rate, regular rhythm Abdomen: non tender, soft Last 24 Hour Vital Signs Date Time Temp Pulse Resp B/P (MAP) Pulse Ox O2 Delivery O2 Flow Rate FiO2 10/11/17 04:23 97.3 66 18 129/72 96 10/11/17 00:00 97.3 69 18 141/83 97 10/10/17 20:00 96.8 69 20 143/85 100 10/10/17 19:48 81 18 Room Air 21 10/10/17 16:00 97.2 70 18 133/78 98 Room Air 10/10/17 12:00 97.2 80 18 118/75 98 Room Air Intake and Output 10/10/17 10/11/17 19:00 07:00 Intake Total 110 ml Output Total 900 ml Balance 110 ml -900 ml IV Total 110 ml Output Urine Total 900 ml Laboratory Tests Test 10/11/17 07:25 White Blood Count 5.6 K/UL (4.8-10.8) Red Blood Count 4.33 M/UL (4.70-6.10) L Hemoglobin 15.0 G/DL (14.2-18.0) Hematocrit 44.2 % (42.0-52.0) Mean Corpuscular Volume 102 FL (80-99) H Mean Corpuscular Hemoglobin 34.6 PG (27.0-31.0) H Mean Corpuscular Hemoglobin Concent 34.0 G/DL (32.0-36.0) Red Cell Distribution Width 12.7 % (11.6-14.8) Platelet Count 165 K/UL (150-450) Mean Platelet Volume 5.6 FL (6.5-10.1) L Neutrophils (%) (Auto) 66.4 % (45.0-75.0) Lymphocytes (%) (Auto) 23.0 % (20.0-45.0) Monocytes (%) (Auto) 9.2 % (1.0-10.0) Eosinophils (%) (Auto) 1.1 % (0.0-3.0) Basophils (%) (Auto) 0.2 % (0.0-2.0) Erythrocyte Sedimentation Rate Pending Sodium Level Pending Potassium Level Pending Chloride Level Pending Carbon Dioxide Level Pending Blood Urea Nitrogen Pending Creatinine Pending Estimat Glomerular Filtration Rate Pending Glucose Level Pending Calcium Level Pending Phosphorus Level Pending Magnesium Level Pending Total Bilirubin Pending Aspartate Amino Transf (AST/SGOT) Pending Alanine Aminotransferase (ALT/SGPT) Pending Alkaline Phosphatase Pending C-Reactive Protein, Quantitative Pending Total Protein Pending Albumin Pending Globulin Pending Height (Feet): 5 Height (Inches): 8.00 Weight (Pounds): 162 Medications Current Medications Medications (Trade) Dose Ordered Sig/Mary Beth Route PRN Reason Start Time Stop Time Status Last Admin Dose Admin Acetaminophen (Tylenol) 650 mg Q4H PRN ORAL T>100.5 10/05/17 19:45 11/04/17 19:44 10/07/17 16:09 Ertapenem 1 gm/ Sodium Chloride 55 ml @ 110 mls/hr Q24H IVPB 10/08/17 14:00 10/13/17 13:59 10/10/17 13:21 Finasteride (Proscar) 5 mg DAILY ORAL 10/06/17 09:00 11/05/17 08:59 10/11/17 08:26 Heparin Sodium (Porcine) (Heparin 5000 units/ml) 5,000 units EVERY 12 HOURS SUBQ 10/05/17 21:00 11/04/17 20:59 10/08/17 10:14 Morphine Sulfate (Morphine Sulfate) 2 mg Q4H PRN IVP Moderate Pain (Pain Scale 4-6) 10/05/17 19:45 10/12/17 19:44 Ondansetron HCl (Zofran) 4 mg Q6H PRN IVP Nausea & Vomiting 10/05/17 19:45 11/04/17 19:44 Phenazopyridine HCl (Pyridium) 100 mg DAILYPRN PRN ORAL dysuria 10/05/17 19:45 11/04/17 19:44 Polyethylene Glycol (Miralax) 17 gm DAILYPRN PRN ORAL Constipation 10/05/17 19:45 11/04/17 19:44 Tamsulosin HCl (Flomax) 0.4 mg BEDTIME ORAL 10/05/17 21:00 11/04/17 20:59 10/10/17 20:28 Temazepam (Restoril) 15 mg HSPRN PRN ORAL Insomnia 10/05/17 19:45 10/12/17 19:[address]: reviewed, right medial 4 cm renal mass Assessment/Plan Status: stable Assessment/Plan 77 yo male with incidental finding of 4 cm right renal mass. Needs to be followed. Consider partial nephrectomy in future depending on growth pattern. No intervention recommended right now. 1. f/u 3 months office visit, consider repeat imaging. Ayan Hernandez M.D. Oct 11, 2017 09:05
[2017-10-11 09:30] LABS: ALANINE AMINOTRANSFERASE 53 U/L (12-78); ALBUMIN 2.9 G/DL (3.4-5.0); ALBUMIN/GLOBULIN RATIO 0.6 (1.0-2.7); ALKALINE PHOSPHATASE 99 U/L (46-116); ANION GAP 9 mmol/L (5-15); ASPARTATE AMINO TRANSFERASE 35 U/L (15-37); BILIRUBIN,TOTAL 0.9 MG/DL (0.2-1.0); BLOOD UREA NITROGEN 27 mg/dL (7-18); CALCIUM 9.4 MG/DL (8.5-10.1); CARBON DIOXIDE 27 MMOL/L (21-32); CHLORIDE 102 MMOL/L (98-107); CREATININE 1.2 MG/DL (0.55-1.30); PHOSPHORUS 3.4 MG/DL (2.5-4.9); POTASSIUM 3.5 MMOL/L (3.5-5.1); SODIUM 138 MMOL/L (136-145)
[2017-10-11 12:00] VITALS: BP 109/68
[2017-10-11] MEDS: Ertapenem 1 GM in NS 55 ML IVPB SCH (13:46)
[2017-10-11 16:00] VITALS: BP 132/76
--- NOTE | 2017-10-11 16:40 | Infectious Diseases Prog Note ---
Assessment/Plan Assessment/Plan Assessment: Sepsis 2ry to ESBL Bacteremia and UTI -Bcx 10/05 1 ESBL e,coli; Bcx 10/09 Bcx NTD UTI- -u/a wbc 15-20,n it +; ucx >100 ESBL E,coli, >100 Morganella morgani (S Ceftriaxone, levo, ertapenem)] ?R kidney mass- r/o abscess vs malignancy vs cyst -CT abd/p wo: Somewhat limited exam, as described 4.4 cm right renal mass described on recent renal ultrasound is confirmed, demonstrates soft tissue attenuation. Suboptimally characterized given the absence of contrast administration, but sonographic and CT of the appearance nonetheless suspicious for renal cell carcinoma. Prostatomegaly. Lopez catheter. Note small amount of retained urine despite this. Bilateral renal cysts incidentally noted. Small amount of free intraperitoneal fluid in the pelvis. Bilateral L4 and L5 spondylolysis. Grade 1 L4 on L5 spondylolisthesis. Multiple compression fractures, age indeterminate. Consider MRI for better. characterization if clinically relevant. Segment 5 subcentimeter low-attenuation lesion, too small to characterize. Most likely benign simple cysts or bile hamartomas. Probable small right pleural effusion -US Kidney: Possible 4.9 cm exophytic right renal mass. Recommend CT for further evaluation. Negative for hydronephrosis. Incidental findings small left renal parapelvic cyst/ Empty bladder, containing a Lopez catheter Fever/leukocytosis- 2ry to above; fever improving, leukocytosis resolved -CXR: Borderline cardiomegaly and suggestion of mild pulmonary vascular congestion. No focal consolidation. -influenza neg SUDHA, no hydronephrosis BPH HTN Plan: -Continue ertapenem abx d#/ for ESBL E.coli bacteremia and ESBL E,coli and morganella UTI -10/09 SP Meropenem #2 -10/07 SP IV Vancomyin #3, Ertapenem x1, CEfepime #3 -10/05 Ceftriaxone x1 -f/u repeat 2 sets of Bcx -f/u cx -Appreciate uro eval: -plan for outpatient f/u and repeat imaging -Monitor CBC/BMP, temperatures -aspiration precautions Thank you for this consultation. Will continue to follow along with you. Discussed with RN Subjective Allergies: Coded Allergies: No Known Allergies (Unverified , 10/05/17) Subjective afebrile >72hr no leukocytosis repeat Bcx NTD feels better Cr improving Objective Vital Signs Last 24 Hour Vital Signs Date Time Temp Pulse Resp B/P (MAP) Pulse Ox O2 Delivery O2 Flow Rate FiO2 10/11/17 16:00 97.0 66 18 132/76 100 Room Air 10/11/17 12:00 96.6 87 18 109/68 99 Room Air 10/11/17 08:00 97.7 66 18 117/68 100 Room Air 10/11/17 04:23 97.3 66 18 129/72 96 10/11/17 00:00 97.3 69 18 141/83 97 10/10/17 20:00 96.8 69 20 143/85 100 10/10/17 19:48 81 18 Room Air 21 Height (Feet): 5 Height (Inches): 8.00 Weight (Pounds): 162 Objective General Appearance: no apparent distress, lethargic Head: normocephalic Eyes: bilateral eye normal inspection, bilateral eye PERRL ENT: normal ENT inspection Neck: normal inspection Respiratory: chest non-tender, lungs clear, normal breath sounds, speaking full sentences Cardiovascular regular rate, rhythm, no edema Gastrointestinal: normal bowel sounds, non tender, soft, non-distended, no guarding, no rebound Rectal: deferred Genitourinary: no CVA tenderness Musculoskeletal: normal inspection Skin: normal inspection Microbiology Date/Time Source Procedure Growth Status 10/09/17 13:10 Blood Blood Culture - Preliminary NO GROWTH AFTER 24 HOURS Resulted 10/09/17 13:05 Blood Blood Culture - Preliminary NO GROWTH AFTER 24 HOURS Resulted Laboratory Tests Test 10/11/17 07:25 White Blood Count 5.6 K/UL (4.8-10.8) Red Blood Count 4.33 M/UL (4.70-6.10) L Hemoglobin 15.0 G/DL (14.2-18.0) Hematocrit 44.2 % (42.0-52.0) Mean Corpuscular Volume 102 FL (80-99) H Mean Corpuscular Hemoglobin 34.6 PG (27.0-31.0) H Mean Corpuscular Hemoglobin Concent 34.0 G/DL (32.0-36.0) Red Cell Distribution Width 12.7 % (11.6-14.8) Platelet Count 165 K/UL (150-450) Mean Platelet Volume 5.6 FL (6.5-10.1) L Neutrophils (%) (Auto) 66.4 % (45.0-75.0) Lymphocytes (%) (Auto) 23.0 % (20.0-45.0) Monocytes (%) (Auto) 9.2 % (1.0-10.0) Eosinophils (%) (Auto) 1.1 % (0.0-3.0) Basophils (%) (Auto) 0.2 % (0.0-2.0) Erythrocyte Sedimentation Rate 55 MM/HR (0-20) H Sodium Level 138 MMOL/L (136-145) Potassium Level 3.5 MMOL/L (3.5-5.1) Chloride Level 102 MMOL/L (98-107) Carbon Dioxide Level 27 MMOL/L (21-32) Anion Gap 9 mmol/L (5-15) Blood Urea Nitrogen 27 mg/dL (7-18) H Creatinine 1.2 MG/DL (0.55-1.30) Estimat Glomerular Filtration Rate mL/min (>60) Glucose Level 118 MG/DL (74-106) H Calcium Level 9.4 MG/DL (8.5-10.1) Phosphorus Level 3.4 MG/DL (2.5-4.9) Magnesium Level 2.0 MG/DL (1.8-2.4) Total Bilirubin 0.9 MG/DL (0.2-1.0) Aspartate Amino Transf (AST/SGOT) 35 U/L (15-37) Alanine Aminotransferase (ALT/SGPT) 53 U/L (12-78) Alkaline Phosphatase 99 U/L (46-116) C-Reactive Protein, Quantitative 5.5 mg/dL (0.00-0.90) H Total Protein 7.5 G/DL (6.4-8.2) Albumin 2.9 G/DL (3.4-5.0) L Globulin 4.6 g/dL Albumin/Globulin Ratio 0.6 (1.0-2.7) L Current Medications Medications (Trade) Dose Ordered Sig/Mary Beth Route PRN Reason Start Time Stop Time Status Last Admin Dose Admin Acetaminophen (Tylenol) 650 mg Q4H PRN ORAL T>100.5 10/05/17 19:45 11/04/17 19:44 10/07/17 16:09 Ertapenem 1 gm/ Sodium Chloride 55 ml @ 110 mls/hr Q24H IVPB 10/08/17 14:00 10/13/17 13:59 10/11/17 13:46 Finasteride (Proscar) 5 mg DAILY ORAL 10/06/17 09:00 11/05/17 08:59 10/11/17 08:26 Heparin Sodium (Porcine) (Heparin 5000 units/ml) 5,000 units EVERY 12 HOURS SUBQ 10/05/17 21:00 11/04/17 20:59 10/08/17 10:14 Morphine Sulfate (Morphine Sulfate) 2 mg Q4H PRN IVP Moderate Pain (Pain Scale 4-6) 10/05/17 19:45 10/12/17 19:44 Ondansetron HCl (Zofran) 4 mg Q6H PRN IVP Nausea & Vomiting 10/05/17 19:45 11/04/17 19:44 Phenazopyridine HCl (Pyridium) 100 mg DAILYPRN PRN ORAL dysuria 10/05/17 19:45 11/04/17 19:44 Polyethylene Glycol (Miralax) 17 gm DAILYPRN PRN ORAL Constipation 10/05/17 19:45 11/04/17 19:44 Tamsulosin HCl (Flomax) 0.4 mg BEDTIME ORAL 10/05/17 21:00 11/04/17 20:59 10/10/17 20:28 Temazepam (Restoril) 15 mg HSPRN PRN ORAL Insomnia 10/05/17 19:45 10/12/17 19:44 Ana Jay M.D. Oct 11, 2017 16:40
[2017-10-11 20:10] VITALS: BP 126/74
[2017-10-11] MEDS: Tamsulosin 0.4mg cap ORAL SCH (20:48)
[2017-10-12 00:17] VITALS: BP 128/72
[2017-10-12 04:06] VITALS: BP 118/67
[2017-10-12 08:00] VITALS: BP 104/63
--- NOTE | 2017-10-12 08:24 | Pulmonology Progress Note ---
Assessment/Plan Assessment/Plan ASSESSMENT Sepsis with E coli ESBL bacteremia ( 2 to UTI) E coli ESBL, Morganella UTI Acute encephalopathy (2 to sepsis ) BPH R renal mass PLAN OF CARE [facility] floor Abx, ID follows Leukocytosi resolved, afebrile US with possible R renal mass CT A/P confirmed presence of R renal mass Continue Flomax and Proscar Pain management DVT prophylaxis Urology eval appreciated per urologist manuelito need partial nephrectomy in future depending on growth pattern. No intervention recommended right now. f/u 3 months office visit, will need to repeat imaging. dc plan for tomorrow ID to clarify abx regimen case discussed and evaluated by supervising physician Subjective Allergies: Coded Allergies: No Known Allergies (Unverified , 10/05/17) Subjective leukocytosis resolved, creat trending down urologist seen and evaluated Objective Last 24 Hour Vital Signs Date Time Temp Pulse Resp B/P (MAP) Pulse Ox O2 Delivery O2 Flow Rate FiO2 10/12/17 04:06 97.3 58 20 118/67 98 Room Air 10/12/17 00:17 97.5 73 20 128/72 98 Room Air 10/11/17 20:10 97.2 63 20 126/74 99 Room Air 10/11/17 16:00 97.0 66 18 132/76 100 Room Air 10/11/17 12:00 96.6 87 18 109/68 99 Room Air Intake and Output 10/11/17 10/12/17 19:00 07:00 Intake Total 295 ml Balance 295 ml Intake Oral 240 ml IV Total 55 ml Microbiology Date/Time Source Procedure Growth Status 10/09/17 13:10 Blood Blood Culture - Preliminary NO GROWTH AFTER 24 HOURS Resulted 10/09/17 13:05 Blood Blood Culture - Preliminary NO GROWTH AFTER 24 HOURS Resulted Current Medications Medications (Trade) Dose Ordered Sig/Mary Beth Route PRN Reason Start Time Stop Time Status Last Admin Dose Admin Acetaminophen (Tylenol) 650 mg Q4H PRN ORAL T>100.5 10/05/17 19:45 11/04/17 19:44 10/07/17 16:09 Ertapenem 1 gm/ Sodium Chloride 55 ml @ 110 mls/hr Q24H IVPB 10/08/17 14:00 10/13/17 13:59 10/11/17 13:46 Finasteride (Proscar) 5 mg DAILY ORAL 10/06/17 09:00 11/05/17 08:59 10/11/17 08:26 Heparin Sodium (Porcine) (Heparin 5000 units/ml) 5,000 units EVERY 12 HOURS SUBQ 10/05/17 21:00 11/04/17 20:59 10/11/17 20:49 Morphine Sulfate (Morphine Sulfate) 2 mg Q4H PRN IVP Moderate Pain (Pain Scale 4-6) 10/05/17 19:45 10/12/17 19:44 Ondansetron HCl (Zofran) 4 mg Q6H PRN IVP Nausea & Vomiting 10/05/17 19:45 11/04/17 19:44 Phenazopyridine HCl (Pyridium) 100 mg DAILYPRN PRN ORAL dysuria 10/05/17 19:45 11/04/17 19:44 Polyethylene Glycol (Miralax) 17 gm DAILYPRN PRN ORAL Constipation 10/05/17 19:45 11/04/17 19:44 Tamsulosin HCl (Flomax) 0.4 mg BEDTIME ORAL 10/05/17 21:00 11/04/17 20:59 10/11/17 20:48 Temazepam (Restoril) 15 mg HSPRN PRN ORAL Insomnia 10/05/17 19:45 10/12/17 19:44 Reynaldo DixonCarissa smiley NP Oct 12, 2017 08:24
[2017-10-12] MEDS: Heparin 5000 units/ml inj SUBQ SCH ×2 (09:09→20:25)
--- NOTE | 2017-10-12 11:13 | Infectious Diseases Prog Note ---
Assessment/Plan Assessment/Plan Assessment: Sepsis 2ry to ESBL Bacteremia and UTI -Bcx 10/05 09/12 ESBL e,coli; Bcx 10/09 Bcx NTD UTI- -u/a wbc 15-20,n it +; ucx >100 ESBL E,coli, >100 Morganella morgani (S Ceftriaxone, levo, ertapenem)] ?R kidney mass- r/o abscess vs malignancy vs cyst -CT abd/p wo: Somewhat limited exam, as described 4.4 cm right renal mass described on recent renal ultrasound is confirmed, demonstrates soft tissue attenuation. Suboptimally characterized given the absence of contrast administration, but sonographic and CT of the appearance nonetheless suspicious for renal cell carcinoma. Prostatomegaly. Lopez catheter. Note small amount of retained urine despite this. Bilateral renal cysts incidentally noted. Small amount of free intraperitoneal fluid in the pelvis. Bilateral L4 and L5 spondylolysis. Grade 1 L4 on L5 spondylolisthesis. Multiple compression fractures, age indeterminate. Consider MRI for better. characterization if clinically relevant. Segment 5 subcentimeter low-attenuation lesion, too small to characterize. Most likely benign simple cysts or bile hamartomas. Probable small right pleural effusion -US Kidney: Possible 4.9 cm exophytic right renal mass. Recommend CT for further evaluation. Negative for hydronephrosis. Incidental findings small left renal parapelvic cyst/ Empty bladder, containing a Lopez catheter Fever/leukocytosis- 2ry to above; fever improving, leukocytosis resolved -CXR: Borderline cardiomegaly and suggestion of mild pulmonary vascular congestion. No focal consolidation. -influenza neg SUDHA, no hydronephrosis BPH HTN Plan: -Continue ertapenem abx d#/ for ESBL E.coli bacteremia and ESBL E,coli and morganella UTI; ok to discharge on this regimen once home health is set up -10/09 SP Meropenem #2 -10/07 SP IV Vancomyin #3, Ertapenem x1, CEfepime #3 -10/05 Ceftriaxone x1 -f/u repeat 2 sets of Bcx -f/u cx -Appreciate uro eval: -plan for outpatient f/u and repeat imaging -Monitor CBC/BMP, temperatures -aspiration precautions Thank you for this consultation. Will continue to follow along with you. Discussed with RN Subjective Allergies: Coded Allergies: No Known Allergies (Unverified , 10/05/17) Subjective afebrile no leukocytosis repeat Bcx NTD feels better Cr improving Objective Vital Signs Last 24 Hour Vital Signs Date Time Temp Pulse Resp B/P (MAP) Pulse Ox O2 Delivery O2 Flow Rate FiO2 10/12/17 08:00 97.7 90 18 104/63 99 10/12/17 04:06 97.3 58 20 118/67 98 Room Air 10/12/17 00:17 97.5 73 20 128/72 98 Room Air 10/11/17 20:10 97.2 63 20 126/74 99 Room Air 10/11/17 16:00 97.0 66 18 132/76 100 Room Air 10/11/17 12:00 96.6 87 18 109/68 99 Room Air Height (Feet): 5 Height (Inches): 8.00 Weight (Pounds): 162 Objective General Appearance: no apparent distress, lethargic Head: normocephalic Eyes: bilateral eye normal inspection, bilateral eye PERRL ENT: normal ENT inspection Neck: normal inspection Respiratory: chest non-tender, lungs clear, normal breath sounds, speaking full sentences Cardiovascular regular rate, rhythm, no edema Gastrointestinal: normal bowel sounds, non tender, soft, non-distended, no guarding, no rebound Rectal: deferred Genitourinary: no CVA tenderness Musculoskeletal: normal inspection Skin: normal inspection Microbiology Date/Time Source Procedure Growth Status 10/09/17 13:10 Blood Blood Culture - Preliminary NO GROWTH AFTER 24 HOURS Resulted 10/09/17 13:05 Blood Blood Culture - Preliminary NO GROWTH AFTER 24 HOURS Resulted Current Medications Medications (Trade) Dose Ordered Sig/Mary Beth Route PRN Reason Start Time Stop Time Status Last Admin Dose Admin Acetaminophen (Tylenol) 650 mg Q4H PRN ORAL T>100.5 10/05/17 19:45 11/04/17 19:44 10/07/17 16:09 Ertapenem 1 gm/ Sodium Chloride 55 ml @ 110 mls/hr Q24H IVPB 10/08/17 14:00 10/13/17 13:59 10/11/17 13:46 Finasteride (Proscar) 5 mg DAILY ORAL 10/06/17 09:00 11/05/17 08:59 10/12/17 09:05 Heparin Sodium (Porcine) (Heparin 5000 units/ml) 5,000 units EVERY 12 HOURS SUBQ 10/05/17 21:00 11/04/17 20:59 10/12/17 09:09 Morphine Sulfate (Morphine Sulfate) 2 mg Q4H PRN IVP Moderate Pain (Pain Scale 4-6) 10/05/17 19:45 10/12/17 19:44 Ondansetron HCl (Zofran) 4 mg Q6H PRN IVP Nausea & Vomiting 10/05/17 19:45 11/04/17 19:44 Phenazopyridine HCl (Pyridium) 100 mg DAILYPRN PRN ORAL dysuria 10/05/17 19:45 11/04/17 19:44 Polyethylene Glycol (Miralax) 17 gm DAILYPRN PRN ORAL Constipation 10/05/17 19:45 11/04/17 19:44 Tamsulosin HCl (Flomax) 0.4 mg BEDTIME ORAL 10/05/17 21:00 11/04/17 20:59 10/11/17 20:48 Temazepam (Restoril) 15 mg HSPRN PRN ORAL Insomnia 10/05/17 19:45 10/12/17 19:44 Ana Jay M.D. Oct 12, 2017 11:13
--- NOTE | 2017-10-12 11:21 | Pulmonology Progress Note ---
Assessment/Plan Assessment/Plan ASSESSMENT Sepsis with E coli ESBL bacteremia ( 2 to UTI) E coli ESBL, Morganella UTI Acute encephalopathy (2 to sepsis ) POA BPH R renal mass PLAN OF CARE [facility] floor Abx, ID follows Leukocytosis resolved, afebrile US with possible R renal mass CT A/P confirmed presence of R renal mass Continue Flomax and Proscar Pain management DVT prophylaxis Urology eval appreciated per urologist may need partial nephrectomy in future depending on growth pattern. No intervention recommended right now. f/u 3 months office visit, will need to repeat imaging. dc today with for IV abx outpt fup with urologist in 3 months case discussed and evaluated by supervising physician Subjective Allergies: Coded Allergies: No Known Allergies (Unverified , 10/05/17) Subjective leukocytosis resolved, creat down to normal urologist seen and evaluated Objective Last 24 Hour Vital Signs Date Time Temp Pulse Resp B/P (MAP) Pulse Ox O2 Delivery O2 Flow Rate FiO2 10/12/17 08:00 97.7 90 18 104/63 99 10/12/17 04:06 97.3 58 20 118/67 98 Room Air 10/12/17 00:17 97.5 73 20 128/72 98 Room Air 10/11/17 20:10 97.2 63 20 126/74 99 Room Air 10/11/17 16:00 97.0 66 18 132/76 100 Room Air 10/11/17 12:00 96.6 87 18 109/68 99 Room Air Intake and Output 10/11/17 10/12/17 19:00 07:00 Intake Total 295 ml Balance 295 ml Intake Oral 240 ml IV Total 55 ml Objective General Appearance: no acute distress HEENT: normocephalic, atraumatic, anicteric Respiratory/Chest: lungs clear, no respiratory distress Cardiovascular: normal rate, no JVD Abdomen: normal bowel sounds, soft, non tender, non distended Extremities: no edema Neurologic/Psychiatric: alert, responsive Musculoskeletal: normal muscle bulk Microbiology Date/Time Source Procedure Growth Status 10/09/17 13:10 Blood Blood Culture - Preliminary NO GROWTH AFTER 24 HOURS Resulted 10/09/17 13:05 Blood Blood Culture - Preliminary NO GROWTH AFTER 24 HOURS Resulted Current Medications Medications (Trade) Dose Ordered Sig/Mary Beth Route PRN Reason Start Time Stop Time Status Last Admin Dose Admin Acetaminophen (Tylenol) 650 mg Q4H PRN ORAL T>100.5 10/05/17 19:45 11/04/17 19:44 10/07/17 16:09 Ertapenem 1 gm/ Sodium Chloride 55 ml @ 110 mls/hr Q24H IVPB 10/08/17 14:00 10/13/17 13:59 10/11/17 13:46 Finasteride (Proscar) 5 mg DAILY ORAL 10/06/17 09:00 11/05/17 08:59 10/12/17 09:05 Heparin Sodium (Porcine) (Heparin 5000 units/ml) 5,000 units EVERY 12 HOURS SUBQ 10/05/17 21:00 11/04/17 20:59 10/12/17 09:09 Morphine Sulfate (Morphine Sulfate) 2 mg Q4H PRN IVP Moderate Pain (Pain Scale 4-6) 10/05/17 19:45 10/12/17 19:44 Ondansetron HCl (Zofran) 4 mg Q6H PRN IVP Nausea & Vomiting 10/05/17 19:45 11/04/17 19:44 Phenazopyridine HCl (Pyridium) 100 mg DAILYPRN PRN ORAL dysuria 10/05/17 19:45 11/04/17 19:44 Polyethylene Glycol (Miralax) 17 gm DAILYPRN PRN ORAL Constipation 10/05/17 19:45 11/04/17 19:44 Tamsulosin HCl (Flomax) 0.4 mg BEDTIME ORAL 10/05/17 21:00 11/04/17 20:59 10/11/17 20:48 Temazepam (Restoril) 15 mg HSPRN PRN ORAL Insomnia 10/05/17 19:45 10/12/17 19:44 eRynaldo [facility]St[facility] HospitalCarissa Vega NP Oct 12, 2017 11:21
--- NOTE | 2017-10-12 11:26 | Discharge Instructions ---
Discharge Instructions Discharge Instructions Follow up with: PMD in 1 week, folow up with urologist in 3 months Call MD/Return to Hospital if: fever, abdom/flank pain, chest pain, SOB Diet: regular - as tolerated Activity: resume normal activities, as tolerated Special Instructions need to follow up in 3 months with urologist per insurance plan for right renal mass seen on CT A/P For Congestive Heart Failure Reminder Report to your physician any weight gain of 5 pounds or more in one week. Reynaldo ([place]),Carissa MALDONADO Oct 12, 2017 11:26
[2017-10-12 12:00] VITALS: BP 120/77
[2017-10-12] MEDS: Ertapenem 1 GM in NS 55 ML IVPB SCH (13:56)
[2017-10-12 16:00] VITALS: BP 133/80
[2017-10-12] MEDS: Tamsulosin 0.4mg cap ORAL SCH (20:22)
[2017-10-12 20:48] VITALS: BP 109/64
[2017-10-13] VITALS (7 sets, daily range): BP systolic 109–130; BP diastolic 65–79
[2017-10-13] MEDS: Heparin 5000 units/ml inj SUBQ SCH ×2 (09:00→20:17)
--- NOTE | 2017-10-13 10:17 | Pulmonology Progress Note ---
Assessment/Plan Assessment/Plan ASSESSMENT Sepsis with E coli ESBL bacteremia ( 2 to UTI) E coli ESBL, Morganella UTI Acute toxic metabolic encephalopathy (2 to sepsis )-POA BPH R renal mass PLAN OF CARE [facility] floor Abx, ID follows Leukocytosis resolved, afebrile US with possible R renal mass CT A/P confirmed presence of R renal mass Continue Flomax and Proscar Pain management DVT prophylaxis Urology eval appreciated per urologist may need partial nephrectomy in future depending on growth pattern. No intervention recommended right now. f/u 3 months office visit, will need to repeat imaging. dc today or when [facility] arranged for IV abx outpt fup with urologist in 3 months case discussed and evaluated by supervising physician Subjective Allergies: Coded Allergies: No Known Allergies (Unverified , 10/05/17) Subjective leukocytosis resolved, creat down to normal urologist seen and evaluated pt was not dc sicne HH was not arranged Objective Last 24 Hour Vital Signs Date Time Temp Pulse Resp B/P (MAP) Pulse Ox O2 Delivery O2 Flow Rate FiO2 10/13/17 08:00 97.9 73 20 129/79 99 10/13/17 04:00 98.2 73 17 130/72 97 Room Air 10/13/17 00:36 98.0 72 20 109/69 98 Room Air 10/13/17 00:00 Room Air 10/12/17 20:48 98.4 69 20 109/64 97 Room Air 10/12/17 20:00 Room Air 10/12/17 16:00 97.7 65 18 133/80 100 10/12/17 12:00 96.8 71 18 120/77 98 Intake and Output 10/12/17 10/13/17 19:00 07:00 Intake Total 240 ml Output Total 300 ml 400 ml Balance -60 ml -400 ml Intake Oral 240 ml Output Urine Total 300 ml 400 ml Objective General Appearance: no acute distress HEENT: normocephalic, atraumatic, anicteric Respiratory/Chest: lungs clear, no respiratory distress Cardiovascular: normal rate, no JVD Abdomen: normal bowel sounds, soft, non tender, non distended Extremities: no edema Neurologic/Psychiatric: alert, responsive Musculoskeletal: normal muscle bulk Current Medications Medications (Trade) Dose Ordered Sig/Mary Beth Route PRN Reason Start Time Stop Time Status Last Admin Dose Admin Acetaminophen (Tylenol) 650 mg Q4H PRN ORAL T>100.5 10/05/17 19:45 11/04/17 19:44 10/07/17 16:09 Ertapenem 1 gm/ Sodium Chloride 55 ml @ 110 mls/hr Q24H IVPB 10/08/17 14:00 10/20/17 13:59 10/12/17 13:56 Finasteride (Proscar) 5 mg DAILY ORAL 10/06/17 09:00 11/05/17 08:59 10/13/17 09:15 Heparin Sodium (Porcine) (Heparin 5000 units/ml) 5,000 units EVERY 12 HOURS SUBQ 10/05/17 21:00 11/04/17 20:59 10/12/17 20:25 Ondansetron HCl (Zofran) 4 mg Q6H PRN IVP Nausea & Vomiting 10/05/17 19:45 11/04/17 19:44 Phenazopyridine HCl (Pyridium) 100 mg DAILYPRN PRN ORAL dysuria 10/05/17 19:45 11/04/17 19:44 Polyethylene Glycol (Miralax) 17 gm DAILYPRN PRN ORAL Constipation 10/05/17 19:45 11/04/17 19:44 Tamsulosin HCl (Flomax) 0.4 mg BEDTIME ORAL 10/05/17 21:00 11/04/17 20:59 10/12/17 20:22 [facility]Carissa NP Oct 13, 2017 10:17
[2017-10-13] MEDS ORDERED: INVANZ1 GM IVPB (10:18)
[2017-10-13] MEDS: Ertapenem 1 GM in NS 55 ML IVPB SCH (13:45)
[2017-10-13] MEDS: Tamsulosin 0.4mg cap ORAL SCH (20:16)
[2017-10-14] VITALS (7 sets, daily range): BP systolic 114–135; BP diastolic 65–81
[2017-10-14 07:56] LABS: ANION GAP 6 mmol/L (5-15); BLOOD UREA NITROGEN 23 mg/dL (7-18); CALCIUM 8.9 MG/DL (8.5-10.1); CARBON DIOXIDE 26 MMOL/L (21-32); CHLORIDE 106 MMOL/L (98-107); CREATININE 1.2 MG/DL (0.55-1.30); POTASSIUM 4.2 MMOL/L (3.5-5.1); SODIUM 138 MMOL/L (136-145)
[2017-10-14 08:07] LABS: BASOPHILS % (AUTO) 0.4 % (0.0-2.0); EOSINOPHILS % (AUTO) 2.7 % (0.0-3.0); HEMATOCRIT 35.3 % (42.0-52.0); HEMOGLOBIN 12.5 G/DL (14.2-18.0); LYMPHOCYTES % (AUTO) 23.3 % (20.0-45.0); MEAN CORPUSCULAR VOLUME 101 FL (80-99); MONOCYTES % (AUTO) 8.7 % (1.0-10.0); PLATELET COUNT 189 K/UL (150-450); RED CELL DISTRIBUTION WIDTH 12.6 % (11.6-14.8); WHITE BLOOD COUNT 5.2 K/UL (4.8-10.8)
[2017-10-14] MEDS: Heparin 5000 units/ml inj SUBQ SCH ×2 (08:19→21:04)
--- NOTE | 2017-10-14 12:47 | Infectious Diseases Prog Note ---
Assessment/Plan Assessment/Plan Assessment: Sepsis 2ry to ESBL Bacteremia and UTI -Bcx 10/05 09/12 ESBL e,coli; Bcx 10/09 Bcx NTD UTI- -u/a wbc 15-20,n it +; ucx >100 ESBL E,coli, >100 Morganella morgani (S Ceftriaxone, levo, ertapenem)] ?R kidney mass- r/o abscess vs malignancy vs cyst -CT abd/p wo: Somewhat limited exam, as described 4.4 cm right renal mass described on recent renal ultrasound is confirmed, demonstrates soft tissue attenuation. Suboptimally characterized given the absence of contrast administration, but sonographic and CT of the appearance nonetheless suspicious for renal cell carcinoma. Prostatomegaly. Lopez catheter. Note small amount of retained urine despite this. Bilateral renal cysts incidentally noted. Small amount of free intraperitoneal fluid in the pelvis. Bilateral L4 and L5 spondylolysis. Grade 1 L4 on L5 spondylolisthesis. Multiple compression fractures, age indeterminate. Consider MRI for better. characterization if clinically relevant. Segment 5 subcentimeter low-attenuation lesion, too small to characterize. Most likely benign simple cysts or bile hamartomas. Probable small right pleural effusion -US Kidney: Possible 4.9 cm exophytic right renal mass. Recommend CT for further evaluation. Negative for hydronephrosis. Incidental findings small left renal parapelvic cyst/ Empty bladder, containing a Lopez catheter Fever/leukocytosis- 2ry to above; fever improving, leukocytosis resolved -CXR: Borderline cardiomegaly and suggestion of mild pulmonary vascular congestion. No focal consolidation. -influenza neg SUDHA, no hydronephrosis BPH HTN Plan: -Continue ertapenem abx d#/ for ESBL E.coli bacteremia and ESBL E,coli and morganella UTI; ok to discharge on this regimen once home health is set up -10/09 SP Meropenem #2 -10/07 SP IV Vancomyin #3, Ertapenem x1, CEfepime #3 -10/05 Ceftriaxone x1 -f/u repeat 2 sets of Bcx -f/u cx -Appreciate uro eval: -plan for outpatient f/u and repeat imaging -Monitor CBC/BMP, temperatures -aspiration precautions -discharge planning Thank you for this consultation. Will continue to follow along with you. Discussed with RN Subjective Allergies: Coded Allergies: No Known Allergies (Unverified , 10/05/17) Subjective afebrile no leukocytosis repeat Bcx NTD awaitign discharge Objective Vital Signs Last 24 Hour Vital Signs Date Time Temp Pulse Resp B/P (MAP) Pulse Ox O2 Delivery O2 Flow Rate FiO2 10/14/17 12:08 96.1 61 18 117/72 100 Room Air 10/14/17 08:00 98.1 84 18 130/74 100 Room Air 10/14/17 04:58 Room Air 10/14/17 04:00 97.0 67 18 116/69 97 10/14/17 00:00 97.8 66 18 114/65 98 10/14/17 00:00 Room Air 10/13/17 20:00 97.6 68 18 116/67 99 10/13/17 19:58 97.7 69 18 114/68 100 Room Air 10/13/17 19:52 78 18 Room Air 21 10/13/17 16:00 97.5 67 18 114/66 100 Height (Feet): 5 Height (Inches): 8.00 Weight (Pounds): 162 Objective General Appearance: no apparent distress, lethargic Head: normocephalic Eyes: bilateral eye normal inspection, bilateral eye PERRL ENT: normal ENT inspection Neck: normal inspection Respiratory: chest non-tender, lungs clear, normal breath sounds, speaking full sentences Cardiovascular regular rate, rhythm, no edema Gastrointestinal: normal bowel sounds, non tender, soft, non-distended, no guarding, no rebound Rectal: deferred Genitourinary: no CVA tenderness Musculoskeletal: normal inspection Skin: normal inspection Laboratory Tests Test 10/14/17 06:10 White Blood Count 5.2 K/UL (4.8-10.8) Red Blood Count 3.50 M/UL (4.70-6.10) L Hemoglobin 12.5 G/DL (14.2-18.0) L Hematocrit 35.3 % (42.0-52.0) L Mean Corpuscular Volume 101 FL (80-99) H Mean Corpuscular Hemoglobin 35.6 PG (27.0-31.0) H Mean Corpuscular Hemoglobin Concent 35.3 G/DL (32.0-36.0) Red Cell Distribution Width 12.6 % (11.6-14.8) Platelet Count 189 K/UL (150-450) Mean Platelet Volume 5.7 FL (6.5-10.1) L Neutrophils (%) (Auto) 65.0 % (45.0-75.0) Lymphocytes (%) (Auto) 23.3 % (20.0-45.0) Monocytes (%) (Auto) 8.7 % (1.0-10.0) Eosinophils (%) (Auto) 2.7 % (0.0-3.0) Basophils (%) (Auto) 0.4 % (0.0-2.0) Sodium Level 138 MMOL/L (136-145) Potassium Level 4.2 MMOL/L (3.5-5.1) Chloride Level 106 MMOL/L (98-107) Carbon Dioxide Level 26 MMOL/L (21-32) Anion Gap 6 mmol/L (5-15) Blood Urea Nitrogen 23 mg/dL (7-18) H Creatinine 1.2 MG/DL (0.55-1.30) Estimat Glomerular Filtration Rate mL/min (>60) Glucose Level 97 MG/DL (74-106) Calcium Level 8.9 MG/DL (8.5-10.1) Current Medications Medications (Trade) Dose Ordered Sig/Mary Beth Route PRN Reason Start Time Stop Time Status Last Admin Dose Admin Acetaminophen (Tylenol) 650 mg Q4H PRN ORAL T>100.5 10/05/17 19:45 11/04/17 19:44 10/07/17 16:09 Ertapenem 1 gm/ Sodium Chloride 55 ml @ 110 mls/hr Q24H IVPB 10/08/17 14:00 10/20/17 13:59 10/13/17 13:45 Finasteride (Proscar) 5 mg DAILY ORAL 10/06/17 09:00 11/05/17 08:59 10/14/17 08:16 Heparin Sodium (Porcine) (Heparin 5000 units/ml) 5,000 units EVERY 12 HOURS SUBQ 10/05/17 21:00 11/04/17 20:59 10/14/17 08:19 Ondansetron HCl (Zofran) 4 mg Q6H PRN IVP Nausea & Vomiting 10/05/17 19:45 11/04/17 19:44 Phenazopyridine HCl (Pyridium) 100 mg DAILYPRN PRN ORAL dysuria 10/05/17 19:45 11/04/17 19:44 Polyethylene Glycol (Miralax) 17 gm DAILYPRN PRN ORAL Constipation 10/05/17 19:45 11/04/17 19:44 Tamsulosin HCl (Flomax) 0.4 mg BEDTIME ORAL 10/05/17 21:00 11/04/17 20:59 10/13/17 20:16 Ana Jay M.D. Oct 14, 2017 12:47
[2017-10-14] MEDS: Ertapenem 1 GM in NS 55 ML IVPB SCH (13:08)
--- NOTE | 2017-10-14 13:53 | Cardiology Report ---
APPROVED REPORT EKG Measurement Heart [id number] Sinus tachycardia with premature atrial complexes Abnormal ECG
--- NOTE | 2017-10-14 18:44 | Pulmonology Progress Note ---
Assessment/Plan Problems: (1) Acute encephalopathy (2) Sepsis (3) UTI (urinary tract infection) (4) Altered level of consciousness (5) BPH (benign prostatic hyperplasia) Assessment/Plan ESBL sepsis continue abx, changed by Id iv fluids check electroltyes renal w/u dvt prophylaxis. dc planning home with iv abx d/w urology, repeat CT abdomen in 3 month awaiting set up for home for IV abx Subjective ROS Limited/Unobtainable: No Constitutional: Reports: no symptoms HEENT: Repors: no symptoms Allergies: Coded Allergies: No Known Allergies (Unverified , 10/05/17) Objective Last 24 Hour Vital Signs Date Time Temp Pulse Resp B/P (MAP) Pulse Ox O2 Delivery O2 Flow Rate FiO2 10/14/17 16:21 96.1 64 18 116/70 99 Room Air 10/14/17 12:08 96.1 61 18 117/72 100 Room Air 10/14/17 08:00 98.1 84 18 130/74 100 Room Air 10/14/17 04:58 Room Air 10/14/17 04:00 97.0 67 18 116/69 97 10/14/17 00:00 97.8 66 18 114/65 98 10/14/17 00:00 Room Air 10/13/17 20:00 97.6 68 18 116/67 99 10/13/17 19:58 97.7 69 18 114/68 100 Room Air 10/13/17 19:52 78 18 Room Air 21 Intake and Output 10/13/17 10/14/17 19:00 07:00 Intake Total 935 ml Output Total 250 ml 1400 ml Balance 685 ml -1400 ml Intake Oral 880 ml IV Total 55 ml Output Urine Total 250 ml 1400 ml # Voids 2 # Bowel Movements 1 Objective General Appearance: WN HEENT: normocephalic, atraumatic Respiratory/Chest: chest wall non-tender, lungs clear Cardiovascular: normal peripheral pulses, normal rate Abdomen: normal bowel sounds, no organomegaly Extremities: no cyanosis Skin: no rash 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, 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 Lymphatic: no neck adenopathy Laboratory Tests 10/14/17 06:10: White Blood Count 5.2, Red Blood Count 3.50L, Hemoglobin 12.5L, Hematocrit 35.3L , Mean Corpuscular Volume 101H, Mean Corpuscular Hemoglobin 35.6H, Mean Corpuscular Hemoglobin Concent 35.3, Red Cell Distribution Width 12.6, Platelet Count 189, Mean Platelet Volume 5.7L, Neutrophils (%) (Auto) 65.0, Lymphocytes ( %) (Auto) 23.3, Monocytes (%) (Auto) 8.7, Eosinophils (%) (Auto) 2.7, Basophils (%) (Auto) 0.4, Sodium Level 138, Potassium Level 4.2, Chloride Level 106, Carbon Dioxide Level 26, Anion Gap 6, Blood Urea Nitrogen 23H, Creatinine 1.2, Estimat Glomerular Filtration Rate , Glucose Level 97, Calcium Level 8.9 Current Medications Medications (Trade) Dose Ordered Sig/Mary Beth Route PRN Reason Start Time Stop Time Status Last Admin Dose Admin Acetaminophen (Tylenol) 650 mg Q4H PRN ORAL T>100.5 10/05/17 19:45 11/04/17 19:44 10/07/17 16:09 Ertapenem 1 gm/ Sodium Chloride 55 ml @ 110 mls/hr Q24H IVPB 10/08/17 14:00 10/20/17 13:59 10/14/17 13:08 Finasteride (Proscar) 5 mg DAILY ORAL 10/06/17 09:00 11/05/17 08:59 10/14/17 08:16 Heparin Sodium (Porcine) (Heparin 5000 units/ml) 5,000 units EVERY 12 HOURS SUBQ 10/05/17 21:00 11/04/17 20:59 10/14/17 08:19 Ondansetron HCl (Zofran) 4 mg Q6H PRN IVP Nausea & Vomiting 10/05/17 19:45 11/04/17 19:44 Phenazopyridine HCl (Pyridium) 100 mg DAILYPRN PRN ORAL dysuria 10/05/17 19:45 11/04/17 19:44 Polyethylene Glycol (Miralax) 17 gm DAILYPRN PRN ORAL Constipation 10/05/17 19:45 11/04/17 19:44 Tamsulosin HCl (Flomax) 0.4 mg BEDTIME ORAL 10/05/17 21:00 11/04/17 20:59 10/13/17 20:16 JOHN PAUL ESPINOSA Oct 14, 2017 18:44
[2017-10-14] MEDS: Tamsulosin 0.4mg cap ORAL SCH (21:03)
[2017-10-15 04:15] VITALS: BP 123/70
[2017-10-15 08:10] VITALS: BP 122/85
[2017-10-15] MEDS: Heparin 5000 units/ml inj SUBQ SCH (08:30)
[2017-10-15 12:13] VITALS: BP 123/71
--- NOTE | 2017-10-15 13:36 | Infectious Diseases Prog Note ---
Assessment/Plan Assessment/Plan Assessment: Sepsis (SP) 2ry to ESBL Bacteremia and UTI -Bcx 10/05 1 ESBL e,coli; Bcx 10/09 Bcx Neg UTI- -u/a wbc 15-20,n it +; ucx >100 ESBL E,coli, >100 Morganella morgani (S Ceftriaxone, levo, ertapenem)] ?R kidney mass- r/o abscess vs malignancy vs cyst -CT abd/p wo: Somewhat limited exam, as described 4.4 cm right renal mass described on recent renal ultrasound is confirmed, demonstrates soft tissue attenuation. Suboptimally characterized given the absence of contrast administration, but sonographic and CT of the appearance nonetheless suspicious for renal cell carcinoma. Prostatomegaly. Lopez catheter. Note small amount of retained urine despite this. Bilateral renal cysts incidentally noted. Small amount of free intraperitoneal fluid in the pelvis. Bilateral L4 and L5 spondylolysis. Grade 1 L4 on L5 spondylolisthesis. Multiple compression fractures, age indeterminate. Consider MRI for better. characterization if clinically relevant. Segment 5 subcentimeter low-attenuation lesion, too small to characterize. Most likely benign simple cysts or bile hamartomas. Probable small right pleural effusion -US Kidney: Possible 4.9 cm exophytic right renal mass. Recommend CT for further evaluation. Negative for hydronephrosis. Incidental findings small left renal parapelvic cyst/ Empty bladder, containing a Lopez catheter Fever/leukocytosis- 2ry to above; fever improving, leukocytosis resolved -CXR: Borderline cardiomegaly and suggestion of mild pulmonary vascular congestion. No focal consolidation. -influenza neg SUDHA, no hydronephrosis BPH HTN Plan: -Continue ertapenem abx d#05/23 for ESBL E.coli bacteremia and ESBL E,coli and morganella UTI; ok to discharge on this regimen (possibly today) -PO bactrim will be suboptimal for complicated ESBL e.coli UTi with bacteremia given levels in blood and also potential for ESBL to acquire resistance to bactrim as well. -10/09 SP Meropenem #2 -10/07 SP IV Vancomyin #3, Ertapenem x1, CEfepime #3 -10/05 Ceftriaxone x1 -plan for outpatient f/u and repeat imaging -Monitor CBC/BMP, temperatures -aspiration precautions -discharge planning Thank you for this consultation. Will continue to follow along with you. Discussed with RN , Dr Daly and CM Subjective Allergies: Coded Allergies: No Known Allergies (Unverified , 10/05/17) Subjective afebrile no leukocytosis repeat Bcx Neg awaitign discharge Objective Vital Signs Last 24 Hour Vital Signs Date Time Temp Pulse Resp B/P (MAP) Pulse Ox O2 Delivery O2 Flow Rate FiO2 10/15/17 12:13 97.2 61 18 123/71 97 Room Air 10/15/17 08:10 97.0 83 18 122/85 96 Room Air 10/15/17 04:15 97.0 62 18 123/70 97 62 10/14/17 23:48 97.0 67 18 135/81 97 67 10/14/17 20:13 96.7 65 18 118/72 97 10/14/17 16:21 96.1 64 18 116/70 99 Room Air Height (Feet): 5 Height (Inches): 8.00 Weight (Pounds): 162 Objective General Appearance: no apparent distress, lethargic Head: normocephalic Eyes: bilateral eye normal inspection, bilateral eye PERRL ENT: normal ENT inspection Neck: normal inspection Respiratory: chest non-tender, lungs clear, normal breath sounds, speaking full sentences Cardiovascular regular rate, rhythm, no edema Gastrointestinal: normal bowel sounds, non tender, soft, non-distended, no guarding, no rebound Rectal: deferred Genitourinary: no CVA tenderness Musculoskeletal: normal inspection Skin: normal inspection Current Medications Medications (Trade) Dose Ordered Sig/Mary Beth Route PRN Reason Start Time Stop Time Status Last Admin Dose Admin Acetaminophen (Tylenol) 650 mg Q4H PRN ORAL T>100.5 10/05/17 19:45 11/04/17 19:44 10/07/17 16:09 Ertapenem 1 gm/ Sodium Chloride 55 ml @ 110 mls/hr Q24H IVPB 10/08/17 14:00 10/20/17 13:59 10/14/17 13:08 Finasteride (Proscar) 5 mg DAILY ORAL 10/06/17 09:00 11/05/17 08:59 10/15/17 08:27 Heparin Sodium (Porcine) (Heparin 5000 units/ml) 5,000 units EVERY 12 HOURS SUBQ 10/05/17 21:00 11/04/17 20:59 10/15/17 08:30 Ondansetron HCl (Zofran) 4 mg Q6H PRN IVP Nausea & Vomiting 10/05/17 19:45 11/04/17 19:44 Phenazopyridine HCl (Pyridium) 100 mg DAILYPRN PRN ORAL dysuria 10/05/17 19:45 11/04/17 19:44 Polyethylene Glycol (Miralax) 17 gm DAILYPRN PRN ORAL Constipation 10/05/17 19:45 11/04/17 19:44 Tamsulosin HCl (Flomax) 0.4 mg BEDTIME ORAL 10/05/17 21:00 11/04/17 20:59 10/14/17 21:03 Ana Jay M.D. Oct 15, 2017 13:36
[2017-10-15] MEDS: Ertapenem 1 GM in NS 55 ML IVPB SCH (14:22)
[2017-10-15 16:28] VITALS: BP 123/72
--- NOTE | 2017-10-15 19:43 | Pulmonology Progress Note ---
Assessment/Plan Problems: (1) Acute encephalopathy (2) Sepsis (3) UTI (urinary tract infection) (4) Altered level of consciousness (5) BPH (benign prostatic hyperplasia) Assessment/Plan ESBL sepsis continue abx, changed by Id iv fluids check electroltyes renal w/u dvt prophylaxis. dc planning home with iv abx d/w urology, repeat CT abdomen in 3 month awaiting HH set up for home for IV abx c home today, when HH is ready Subjective ROS Limited/Unobtainable: No Constitutional: Reports: no symptoms HEENT: Repors: no symptoms Allergies: Coded Allergies: No Known Allergies (Unverified , 10/05/17) Objective Last 24 Hour Vital Signs Date Time Temp Pulse Resp B/P (MAP) Pulse Ox O2 Delivery O2 Flow Rate FiO2 10/15/17 16:28 97.7 63 18 123/72 100 Room Air 10/15/17 12:13 97.2 61 18 123/71 97 Room Air 10/15/17 08:10 97.0 83 18 122/85 96 Room Air 10/15/17 04:15 97.0 62 18 123/70 97 62 10/14/17 23:48 97.0 67 18 135/81 97 67 10/14/17 20:13 96.7 65 18 118/72 97 Intake and Output 10/14/17 10/15/17 19:00 07:00 Intake Total 895 ml Output Total 1800 ml 1700 ml Balance -905 ml -1700 ml Intake Oral 840 ml IV Total 55 ml Output Urine Total 1800 ml 1700 ml Objective General Appearance: WN HEENT: normocephalic, atraumatic Respiratory/Chest: chest wall non-tender, lungs clear Cardiovascular: normal peripheral pulses, normal rate Abdomen: normal bowel sounds, no organomegaly Extremities: no cyanosis Skin: no rash 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, 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 Lymphatic: no neck adenopathy Current Medications Medications (Trade) Dose Ordered Sig/Mary Beth Route PRN Reason Start Time Stop Time Status Last Admin Dose Admin Acetaminophen (Tylenol) 650 mg Q4H PRN ORAL T>100.5 10/05/17 19:45 11/04/17 19:44 10/07/17 16:09 Ertapenem 1 gm/ Sodium Chloride 55 ml @ 110 mls/hr Q24H IVPB 10/08/17 14:00 10/20/17 13:59 10/15/17 14:22 Finasteride (Proscar) 5 mg DAILY ORAL 10/06/17 09:00 11/05/17 08:59 10/15/17 08:27 Heparin Sodium (Porcine) (Heparin 5000 units/ml) 5,000 units EVERY 12 HOURS SUBQ 10/05/17 21:00 11/04/17 20:59 10/15/17 08:30 Ondansetron HCl (Zofran) 4 mg Q6H PRN IVP Nausea & Vomiting 10/05/17 19:45 11/04/17 19:44 Phenazopyridine HCl (Pyridium) 100 mg DAILYPRN PRN ORAL dysuria 10/05/17 19:45 11/04/17 19:44 Polyethylene Glycol (Miralax) 17 gm DAILYPRN PRN ORAL Constipation 10/05/17 19:45 11/04/17 19:44 Tamsulosin HCl (Flomax) 0.4 mg BEDTIME ORAL 10/05/17 21:00 11/04/17 20:59 10/14/17 21:03 JOHN PAUL ESPINOSA Oct 15, 2017 19:43
--- NOTE | 2017-10-17 18:17 | Discharge Summary ---
Discharge Summary Hospital Course Date of Admission Oct 05, 2017 at 18:46 Date of Discharge Oct 15, 2017 at 20:00 Admitting Diagnosis fever/sepsis HPI David Mathew is a 77 year old male who was admitted on Oct 05, 2017 at 18: 46 for Fever, Sepsis Hospital Course [id number] Discharge Discharge Disposition Patient was discharged to home with Discharge Diagnoses: Discharge Instructions Discharge Instructions Follow up with: PMD in 1 week, folow up with urologist in 3 months Call MD/Return to Hospital if: fever, abdom/flank pain, chest pain, SOB Activity: resume normal activities, as tolerated Rebecca Salinas NP Oct 17, 2017 18:17
--- NOTE | 2017-10-18 02:45 | Discharge Summary 2 SIG ---
DATE OF ADMISSION: 10/05/2017 DATE OF DISCHARGE: 10/15/2017 CONSULTANTS: 1. Ana Jay M.D. 2. Ayan Hernandez M.D. BRIEF HOSPITAL COURSE: The patient is a 77-year-old male with history of BPH and hypertension, presented to ED for evaluation of lethargy and weakness for a day. On evaluation at ED, the patient was febrile, temperature of 103.8. Blood work showed leukocytosis, WBC of 14. Urine with 3+ leukocyte esterase and positive nitrite. Chest x-ray done showed no acute process. He was given Tylenol for fever and IV fluids. Tachycardia improved. He was then admitted for altered level of consciousness, urinary tract infection, and sepsis. He was initially given vancomycin and ceftriaxone. Antibiotic was changed to ertapenem as blood culture was showing ESBL E. coli. Urine culture with ESBL E. coli and Morganella. He was negative for influenza A and B. He had a renal ultrasound done that showed a 4.9 exophytic right renal mass. Negative for hydronephrosis. Abdominal and pelvic CT again demonstrated a 4.4 right renal mass, suspicious for renal cell carcinoma. On urologist evaluation, the patient needs to be followed up as outpatient to consider partial nephrectomy depending on growth pattern. There was no necessary acute intervention needed. He was advised to repeat imaging in three months. He was continued on Flomax and Proscar. Leukocytosis resolved. Fever resolved. The patient would need to continue home antibiotics. Home health was finally arranged. He was eventually discharged on 10/15/2017, to continue IV antibiotics. FINAL DIAGNOSES: 1. Sepsis. 2. Acute toxic encephalopathy. 3. Urinary tract infection with extended-spectrum beta-lactamases. 4. Bacteremia with extended-spectrum beta-lactamases. 5. Right kidney mass. 6. Acute kidney injury with no hydronephrosis. 7. Benign prostatic hypertrophy. 8. Hypertension. DISPOSITION: The patient was discharged home with home health. DISCHARGE MEDICATION: Continue with Invanz 1 g IV. DISCHARGE INSTRUCTIONS: Follow up with Urology in three months for a repeat imaging of the right renal mass. FOLLOWUP: Follow up with PMD in a week. Jackie Daly M.D. I have been assigned to dictate discharge summary on this account and I was not involved in the patient's management. Rebecca Salinas N.P. DR: ALYSSA JOB#: [id number] CC: [id number]
== END 2017-10-15 20:00 | disposition home or self-care (01) | DRG 871 ==
LOC: EDBD 17:08 → EMR 17:50 → 4W 18:46 → EDBEDREQ 20:32
DX: A41.51 Sepsis due to Escherichia coli [E. coli] (principal); G92 Toxic encephalopathy; N17.9 Acute kidney failure, unspecified; N39.0 Urinary tract infection, site not specified; N40.0 Benign prostatic hyperplasia without lower urinary tract symptoms; Z16.12 Extended spectrum beta lactamase (ESBL) resistance; N28.89 Other specified disorders of kidney and ureter; I10 Essential (primary) hypertension
CPT/HCPCS: 36415; 71045; 74176; 76775; 80048; 80053; 80202; 81001; 81003; 82248; 82550; 82553; 83605; 83735; 83880; 84100; 84133; 84300; 84484; 84550; 85007; 85025; 85651; 86140; 86710; 87040; 87086; 87181; 87324; 89050; 93005; 94664; 99285; J8499